=== PATIENT | male | born 1955 | race Caucasian/White ===

== ENCOUNTER 2021-10-09 10:18 | Emergency (ER) | payer OTHER, SELFPAY ==
--- NOTE | ~2021-10-09 | XR_ITS ---
EXAMINATION: XR lumbar spine 2-3V DATE: 10/09/2021 11:05 INDICATION: Mid to low back pain. Fall. TECHNIQUE: 3 views of lumbar spine were obtained. COMPARISON: None. FINDINGS: There is 3 mm retrolisthesis of L1 on L2. There is mild chronic anterior wedging of T11 yane tebral body. There is mildly decreased disc height at L1-L2. There are changes of posterior fusion pr ocedure from L4 to S1 with pedicle screws in L4 and S1. These are disc calcifications at L4-L5 sugges ts interbody fusion. There is multilevel mild facet joint osteoarthritis. There is posterolateral bon e graft from L4 to S1. IMPRESSION: 1. Mild lumbar spondylosis. 2. Posterior fusion procedure from L4 to S1. Reviewed, dictated and finalized at location A.
--- NOTE | ~2021-10-09 | XR_ITS ---
EXAMINATION: XR ribs LT 2V DATE: 10/09/2021 11:05 INDICATION: Posterolateral left rib pain post fall TECHNIQUE: 3 views of the left ribs were obtained. COMPARISON: Chest radiograph dated 12/23/2017 FINDINGS: Old healed fractures of the posterior medial left third-fifth ribs which can be seen on the earlier r adiographs. No new fractures identified. Chronic pleural parenchymal scarring along the left heart elida rder. No new airspace opacities, pulmonary edema, pleural effusion or pneumothorax. Heart size is nor mal. Median sternotomy wires, ostial markers and mediastinal surgical clips consistent with prior cor onary artery bypass grafting. Chronic Hill-Sachs fracture deformity at the superolateral left liz l head with partially visualized bilateral vertical mandy and pedicle screw fixation for lumbosacral po sterior spinal fusion. IMPRESSION: 1. No acute rib fracture or acute cardiopulmonary disease in the left hemithorax. Reviewed, dictated and finalized at location A. IMPRESSION: 1. No acute rib fracture or acute cardiopulmonary disease in the left hemithora x.
--- NOTE | 2021-10-09 10:29 | ED.BACK ---
HPI - Back Pain/Injury General Chief Complaint: Back Pain/Injury Stated Complaint: Back Pain Time Seen by Provider: 10/09/21 10:35 Source: patient and RN notes reviewed Mode of arrival: ambulatory Limitations: no limitations History of Present Illness HPI Narrative: 66-year-old male with a history of 6 vessel CABG in 2014 (on Plavix and Asa 81mg) and hx multiple spine surgeries presented for complaint of left rib and low back pain after falling three times 3 nights ago. He states he got dizzy while walking to the bathroom and during the night, does not recall the events but states he believes he lost his balance and hit the vanity and the tub. States his head feels sore and believes he may have hit his head. Two falls occurred sequentially, stating when he stood up from the first fall he got dizzy and fell again. Later in the night he walked to the bathroom again and fell for the third time against the dresser hitting his left posterior ribs. Denies dizziness, vision changes, nausea, vomiting, chest pain, palpitations, or shortness of breath or loss of bowel/bladder function; denies numbness, tingling or weakness in upper or lower extremities or saddle paresthesia. Hx 2 cervical spine and 2 lumbar spine surgeries. Related Data Home Medications Medication Instructions Recorded Confirmed amitriptyline 100 mg tablet mg 10/09/21 aspirin 81 mg tablet,delayed mg 10/09/21 release baclofen 10 mg tablet mg 10/09/21 buspirone 7.5 mg tablet mg 10/09/21 clopidogrel 75 mg tablet mg 10/09/21 cyanocobalamin (vitamin B-12) mcg 10/09/21 1,000 mcg tablet (Vitamin B-12) duloxetine 60 mg capsule,delayed 60 mg PO BID 10/09/21 10/09/21 release ezetimibe 10 mg tablet mg 10/09/21 gabapentin 100 mg capsule mg 10/09/21 levothyroxine 150 mcg tablet mcg 10/09/21 omeprazole 40 mg capsule,delayed mg 10/09/21 release oxycodone-acetaminophen 10 mg-325 tablet 10/09/21 mg tablet rosuvastatin 40 mg tablet mg 10/09/21 Allergies Allergy/AdvReac Type Severity Reaction Status Date / Time No Known Allergies Allergy Verified 10/09/21 10:20 Review of Systems Review of Systems: CONSTITUTIONAL: Denies body aches, fever, chills, or sweats. EYES: Denies visual changes, redness, or discharge. ENT: Denies rhinorrhea, congestion, sore throat, or otalgia. CARDIOVASCULAR: Denies chest pain, palpitations, or edema. RESPIRATORY: Denies cough or dyspnea. GASTROINTESTINAL: Denies abdominal pain, nausea, vomiting, or diarrhea. GENITOURINARY: Denies dysuria or hematuria. SKIN: Denies rash, itching, or wounds. MUSCULOSKELETAL: Reports back and rib pain NEUROLOGIC: denies headache, denies numbness, tingling, or weakness, dizziness All systems reviewed & are unremarkable except as noted in HPI and below PMFSH Comments At time of signature, I have reviewed and agree with nursing past medical, surgical, social and family history unless otherwise noted. Please see nursing chart for further information. There is no relevant family history pertinent to the presenting complaint Exam Narrative: GENERAL: Well-appearing HEAD: Normocephalic, atraumatic. EYES: PERRLA, EOMI. ENT: Mucous membranes pink and moist. No rhinorrhea. NECK: Normal AROM. Supple. No cervical vertebral point tenderness CHEST: Clear to auscultation. HEART: Regular rate and rhythm. ABDOMEN: Soft, nontender, nondistended, normal active bowel sounds. MUSCULOSKELETAL: Lumbar spine tenderness to palpation approx L3-4 area, Left posterior rib bruising and tenderness with palpation to approx 6-7th ribs EXTREMITIES: Normal range of motion. No edema. SKIN: Warm, dry, no rash. Capillary refill normal. Normal skin turgor. NEURO:No focal deficits. Alert and oriented x3. EOMs intact without nystagmus. No facial droop/asymmetry noted bilaterally. Grimace intact. Intact sensation in face. Hearing intact bilaterally. Shoulder shrug intact. Strength 5/5 bilateral upper extremities.Ambulatory ex
[2021-10-09 10:30] VITALS: BP 114/84; PULSE 75; RESP 16; TEMP 37.1; O2SAT 99
== END 2021-10-09 12:05 | disposition home or self-care (01) ==
PROVIDERS: Emergency Provider Nurse Practitioner Family
DX: R42 Dizziness and giddiness (principal); M54.50 Low back pain, unspecified; S20.212A Contusion of left front wall of thorax, initial encounter; W19.XXXA Unspecified fall, initial encounter; Z95.5 Presence of coronary angioplasty implant and graft; I25.10 Atherosclerotic heart disease of native coronary artery without angina pectoris; E78.00 Pure hypercholesterolemia, unspecified; I10 Essential (primary) hypertension; K21.9 Gastro-esophageal reflux disease without esophagitis; N40.0 Benign prostatic hyperplasia without lower urinary tract symptoms; E03.9 Hypothyroidism, unspecified; G62.9 Polyneuropathy, unspecified; F41.9 Anxiety disorder, unspecified; Z79.01 Long term (current) use of anticoagulants; Z79.82 Long term (current) use of aspirin
CPT/HCPCS: 71100; 72100; 99214; G0463

== ENCOUNTER 2022-04-13 00:38 | Day surgery (SDC) | payer OTHER, SELFPAY ==
[2022-04-06 10:42] VITALS: BMI 32.0
--- NOTE | 2022-04-06 11:06 | PC.NURSE ---
Report to the Outpatient Waiting Room, entrance under the green pavilion located off [facility], at time _1100_ on date _04/13/22_. Planned Procedure Time: _1 PM_. Time changes happen often and if your time is changed the preop area will call you the afternoon before. - You and your visitor will be asked to self-screen and do not enter if you have any COVID symptoms. - Only one visitor is requested with a max of two and NO children visitors are allowed at this time. - The patient visitor may be requested to leave or wait in car when not with patient due to distancing restrictions. - A mask is optional within the hospital at this time. Patients may have clear liquids (water, carbonated beverages, clear teas, apple juice) until 3 hours prior to surgery (1000 AM) with a maximum of 20 ounces. - No food from midnight until time of surgery Take the following medications with a SIP of water the morning of surgery: _BACLOFEN, BUSPIRONE, DULOXETINE, GABAPENTIN, LEVOTHYROXINE, PROPRANOLOL_ DO NOT STOP ANY OF YOUR OTHER PRESCRIPTION MEDICATIONS PRIOR TO SURGERY ?EXCEPT THE FOLLOWING Medications to discontinue - _MELOXICAM PER DR. BECKHAM'S INSTRUCTIONS__ Medications to discontinue per DR. DALAL - _ASPIRIN 7 DAYS PRIOR TO SURGERY, Date PATIENT took last dose 04/06/22_ Medications to discontinue per DR. DALAL -_CLOPIDOGREL 3 DAYS PRIOR TO SURGERY, Date to take last dose 04/09/22_ Please no make-up, nail austrian, hairspray, perfume, deodorant, or body powder the day of surgery. No jewelry (including any body piercings) or valuables the day of surgery, leave them at home. Please take a shower or bath the night before, or the morning of, surgery with an antibacterial soap. Wear comfortable, loose fitting clothing. Children are encouraged to wear pajamas. - Jewelry must be removed prior to entering the operating room. Rings and piercings that are not removed may be cut off. - The hospital will not accept responsibility for valuables. - Please leave all valuables, including medications, at home the day of surgery. If you are going home after surgery, a licensed powder truck driver must drive you home. - NO public transportation without another adult if you receive anesthesia. - We recommend that an adult stay with you for 24 hours following discharge. - We also recommend that you do not drive, make important decision, drink alcoholic beverages, or take any drugs that were not prescribed by your health care provider for at least 24 hours after your discharge time. For Pediatric surgeries, we recommend two adults accompany the child home. Follow any additional instructions given to you from your surgeon. If you or anyone in your household have experienced Covid symptoms in the past week, please notify your surgeon or the nurse liaison at the phone number below for possible testing. Telephone instructions given to _PATIENT__and asked if any additional questions and then verbalized understanding. Patient advised to call surgeon office or pre surgery nurse liaison [phone] if any additional questions.
[2022-04-13] VITALS (9 sets, daily range): BP systolic 98–132; BP diastolic 51–80; PULSE 74–87; RESP 12–18; TEMP 36.6–37.1; O2SAT 92–98; BMI 22.5
[2022-04-13] MEDS: ONDANSETRON INJ 4 MG/2 ML VIAL IV PUSH (10:23)
[2022-04-13] MEDS: LACTATED RINGERS 1,000 ML 30 ML IV CONT (10:23)
[2022-04-13] MEDS: FAMOTIDINE 20 MG/2 ML VIAL IV PUSH (10:26)
--- NOTE | 2022-04-13 10:56 | SUR.PREOP ---
1324 dr barrios returned call and made aware wound to pt left posterior calf quarter size,open,pink. approved to continue for surgery.
--- NOTE | 2022-04-13 11:15 | WPDANESEPPF ---
Anes - Initial Pre Proc Eval Procedure: Operation Date: 04/13/22 12:00 Proposed Procedures p Tailor's Bunionectomy of Fifth Metatarsal Osteotomy Left Foot - Obie Salamanca DPM Date/Time: 04/13/22 11:15 Surgeon: Obie Salamanca DPM Pre Op Diagnosis: Bunionette Left Foot Patient Data Age: 66 Gender: M Height: 1.64 m Weight: 94.6 kg Last Vital Signs Temp 36.6 C 04/13/22 10:01 Pulse 74 04/13/22 10:01 Resp 16 04/13/22 10:01 BP 131/51 L 04/13/22 10:01 Pulse Ox 96 04/13/22 10:01 O2 Del Method Room Air 04/13/22 10:01 Allergies Allergy/AdvReac Type Severity Reaction Status Date / Time povidone-iodine AdvReac Intermediate Rash Verified 04/13/22 10:10 [From Betadine] Home Medications Medication Instructions Recorded Confirmed Type amitriptyline 100 mg tablet 100 mg PO DAILY 10/09/21 04/13/22 History aspirin 81 mg tablet,delayed 81 mg PO DAILY 10/09/21 04/13/22 History release baclofen 10 mg tablet 10 mg PO TID 10/09/21 04/13/22 History buspirone 7.5 mg tablet 7.5 mg PO BID 10/09/21 04/13/22 History clopidogrel 75 mg tablet 75 mg PO DAILY 10/09/21 04/13/22 History cyanocobalamin (vitamin B-12) 1,000 mcg PO DAILY 10/09/21 04/13/22 History 1,000 mcg tablet (Vitamin B-12) duloxetine 60 mg capsule,delayed 60 mg PO BID 10/09/21 04/13/22 History release ezetimibe 10 mg tablet 10 mg PO DAILY 10/09/21 04/13/22 History gabapentin 100 mg capsule 100 mg PO TID 10/09/21 04/13/22 History levothyroxine 150 mcg tablet 150 mcg PO DAILY 10/09/21 04/13/22 History omeprazole 40 mg capsule,delayed 40 mg PO DAILY 10/09/21 04/13/22 History release oxycodone-acetaminophen 10 mg-325 1 tablet PO QID 10/09/21 04/13/22 History mg tablet rosuvastatin 40 mg tablet 40 mg PO DAILY 10/09/21 04/13/22 History meloxicam 15 mg tablet 15 mg DAILY 04/06/22 04/13/22 History propranolol 20 mg tablet 10 mg TID 04/06/22 04/13/22 History tamsulosin 0.4 mg capsule 0.4 mg PO HS 04/06/22 04/13/22 History Patient hx anesthesia problems: none Family hx anesthesia problems: none Results Review: All pre-operative results and documents have been reviewed as part of the pre-operative evaluation. [facility] Past Medical History Medical History (Updated 04/13/22 @ 11:16 by Sammy Reyes MD) CAD (coronary artery disease) Obesity LISETH (obstructive sleep apnea) Prostate CA Surgical History Surgical History History of coronary artery stent placement Social History Social History Smoking status: Never smoker Second hand tobacco smoke exposure: No Alcohol intake: current Alcohol use details: STATES MAYBE 12 BEERS/6 MONTHS Substance use: never Substance use type: does not use Living arrangements: alone Spiritual care concerns: No Anes - Eval Final PreProcedure Day of Procedure 04/13/22 11:15 Patient weight: obese Heart: regular rate and rhythm Lungs: clear to auscultation Airway: Mallampati scale class III Neurological: alert and oriented Last oral intake: >/= 8 hours ASA classification: IV Emergent: no Anesthetic plan: proceed Anesthesia type and monitoring: general LMA and standard monitoring Results Review: All pre-operative results and documents have been reviewed as part of the pre-operative evaluation. Informed Consent: The patient's anesthetic plan and its attendant risks and benefits were discussed with the patient/family/POA. Questions were solicited and answers provided to the satisfaction of the patient/family/POA.
--- NOTE | 2022-04-13 11:41 | P.HPUP_ITS ---
History and Physical Update Update Date/Time: 04/13/22 11:41 History and Physical has been reviewed, including an updated exam of the patient. There are NO changes in the patient's condition. There is a non- infected abrasion on the back of the left calf Risks, benefits, and alternatives have been discussed and questions answered. Patient agrees to proceed with procedure.
--- NOTE | 2022-04-13 11:49 | PM.IMHP ---
H&P: HPI History of Present Illness Date/Time: 04/13/22 11:49 Chief Complaint: Tailor's bunion left foot that has failed conservative therapy Review of Systems Review of Systems: All systems reviewed & are unremarkable except as noted in HPI and below Constitutional: Constitutional: Reports no additional constitutional complaints Musculoskeletal: Comments: POP of 5th metatarsal head left, prominent tailors bunion left Integumentary/Breasts: Skin/Breast: Reports system reviewed and no additional complaints, except as docu [facility] Past Medical History Medical History (Updated 04/13/22 @ 11:53 by Obie Salamanca DPM) CAD (coronary artery disease) Obesity LISETH (obstructive sleep apnea) Prostate CA Surgical History Surgical History History of coronary artery stent placement Social History Social History Smoking status: Never smoker Second hand tobacco smoke exposure: No Alcohol intake: current Alcohol use details: STATES MAYBE 12 BEERS/6 MONTHS Substance use: never Substance use type: does not use Living arrangements: alone Spiritual care concerns: No Meds Home Medications and Allergies Home Medications Medication Instructions Recorded Confirmed Type amitriptyline 100 mg tablet 100 mg PO DAILY 10/09/21 04/13/22 History aspirin 81 mg tablet,delayed 81 mg PO DAILY 10/09/21 04/13/22 History release baclofen 10 mg tablet 10 mg PO TID 10/09/21 04/13/22 History buspirone 7.5 mg tablet 7.5 mg PO BID 10/09/21 04/13/22 History clopidogrel 75 mg tablet 75 mg PO DAILY 10/09/21 04/13/22 History cyanocobalamin (vitamin B-12) 1,000 mcg PO DAILY 10/09/21 04/13/22 History 1,000 mcg tablet (Vitamin B-12) duloxetine 60 mg capsule,delayed 60 mg PO BID 10/09/21 04/13/22 History release ezetimibe 10 mg tablet 10 mg PO DAILY 10/09/21 04/13/22 History gabapentin 100 mg capsule 100 mg PO TID 10/09/21 04/13/22 History levothyroxine 150 mcg tablet 150 mcg PO DAILY 10/09/21 04/13/22 History omeprazole 40 mg capsule,delayed 40 mg PO DAILY 10/09/21 04/13/22 History release oxycodone-acetaminophen 10 mg-325 1 tablet PO QID 10/09/21 04/13/22 History mg tablet rosuvastatin 40 mg tablet 40 mg PO DAILY 10/09/21 04/13/22 History meloxicam 15 mg tablet 15 mg DAILY 04/06/22 04/13/22 History propranolol 20 mg tablet 10 mg TID 04/06/22 04/13/22 History tamsulosin 0.4 mg capsule 0.4 mg PO HS 04/06/22 04/13/22 History Allergies Allergy/AdvReac Type Severity Reaction Status Date / Time povidone-iodine AdvReac Intermediate Rash Verified 04/13/22 10:10 [From Betadine] Vital Signs Vital Signs - 24 hr 04/13/22 10:01 Temperature 36.6 C Pulse Rate 74 Respiratory Rate 16 Blood Pressure 131/51 L Pulse Oximetry 96 Oxygen Delivery Room Air Exam Narrative: Tailors bunion left foot POP left 5th MTH NVSI uninfected superficial abrasion posterior left leg Assessment and Plan Assessment and plan (1) Tailor's bunion of left foot: Code(s): M21.622 - Bunionette of left foot Status: Acute Plan Tailor's bunion left foot - tailor bunionectomy left foot
[2022-04-13] MEDS: ceFAZolin 2 GM/D5W 50 ML 2 GM/50 ML BAG IVPB (12:10)
[2022-04-13] MEDS: BUPivacaine HCL 0.5% 10 ML AMP INFILTRATE (12:38)
--- NOTE | 2022-04-13 12:59 | PM.OP ---
Procedure Note - Brief Procedure Note - Brief Date of procedure: 04/13/22 Pre-op diagnosis: Bunionette Left Foot Tailor's bunion left Post-op diagnosis: Same Procedure performed: Tailor's bunionectomy with staple fixation left Description of procedure: Under monitored sedation patient was brought into the operating room and placed on the operating table in a supine position. Following general anesthesia the foot was then scrubbed, prepped, and draped in the usual aseptic manner. An Esmark bandage was used to exsanguinate the patient?s left foot and the ankle tourniquet was inflated. Attention was then directed to the dorsal aspect of the 5th metatarsophalangeal joint where linear incision was made lateral to the extensor tendon. It was deepened down to the level of the bone using sharp and blunt dissection with care being taken to identify and retract all vital and neurovascular structures. A linear capsulotomy was made and the head of the metatarsal was exposed to the operative field. The lateral eminence was resected. A closing wedge type osteotomy was made. The head was moved medially and dorsally and fixated with 1 sandhya staple. All remaining bone eminences were removed with a bone saw and all rough edges were smoothed. The wound was flushed with copious amounts of sterile normal saline and the deep tissue was repaired using 3-0 vicryl, skin was repaired using 5-0 vicryl. The wound was then injected with 1cc of Decadron and was covered with a dry, sterile compressive dressing consisting of steristrips, antibiotic ointment, Adaptic, 4 x4?s Jerrod and Coban. Ankle tourniquet was deflated; prompt capillary refill response was noted to all digits of the left foot. Patient tolerated the procedure and anesthesia well, was transferred to the recovery room with vital signs stable and neurovascular status intact to all digit of the left foot. Following a period of post-op monitoring the patient will be discharged home with written and oral post-op instructions. Implants: [place] Easy clip staple Surgeon: Obie Salamanca DPM Material Spreader: none Estimated blood loss (mL): 5 Pathology: None sent Complications: No immediate complications Condition: Stable Disposition: PACU
== END 2022-04-13 15:19 | disposition home or self-care (01) ==
PROVIDERS: Visit Provider Podiatrist Foot & Ankle Surgery
PROC: (CPT 28299; principal; 2022-04-13 12:00)
DX: M21.622 Bunionette of left foot (principal); I25.10 Atherosclerotic heart disease of native coronary artery without angina pectoris; G47.33 Obstructive sleep apnea (adult) (pediatric); Z85.46 Personal history of malignant neoplasm of prostate; E66.9 Obesity, unspecified; Z68.35 Body mass index [BMI] 35.0-35.9, adult; Z79.02 Long term (current) use of antithrombotics/antiplatelets; Z79.82 Long term (current) use of aspirin; Z95.5 Presence of coronary angioplasty implant and graft
CPT/HCPCS: 28110; A9270; C1713; J0690; J1100; J2250; J2370; J2405; J2704; J3010; J7120

== ENCOUNTER 2023-12-20 09:55 | Outpatient (CLI) | payer OTHER, SELFPAY ==
[2023-12-20 10:25] LABS: Hematocrit 38.1 % (42.0-52.0); Hemoglobin 13.5 g/dL (14.0-18.0); Mean Corpuscular HGB Conc 35.4 g/dl (32-36); Mean Corpuscular Hemoglobin 34.4 pg (26-34); Mean Corpuscular Volume 97.2 fl (80-100); Platelet Count Result 202 k/mm3 (150-375); Red Blood Count 3.92 M/mm3 (4.6-6.20); White Blood Count 4.4 K/mm3 (4.5-10.0)
[2023-12-20 10:42] LABS: Alanine Aminotransferase 47 U/L (6-50); Albumin Level 3.9 g/dL (3.5-5.1); Alkaline Phosphatase 75 U/L (38-126); Anion Gap 5 mmol/L (4-12); Aspartate Amino Transferase 50 U/L (17-59); Bilirubin,Total 0.5 mg/dL (0.2-1.3); Blood Urea Nitrogen 12 mg/dL (9-20); Calcium 8.9 mg/dL (8.4-10.2); Carbon Dioxide 28 mmol/L (22-30); Chloride 106 mmol/L (98-107); Cholesterol 94 mg/dL (0-200); Estimated Glomerular Filt Rate > 60; Glucose 105 mg/dL (65-110); HDL Direct 41 mg/dL; Potassium 3.9 mmol/L (3.4-5.0); Sodium 139 mmol/L (137-145); Triglycerides 70 mg/dL (<150)
[2023-12-20 10:53] LABS: LDL Cholesterol Direct 37 mg/dL
[2023-12-20 11:45] LABS: Thyroid Stimulating Hormone Reflex 0.255 uIU/mL (0.465-4.68)
[2023-12-20 11:48] LABS: Folic Acid 7.7 ng/mL (2.76->20); Vitamin B12 > 1000.0 pg/mL (239-931)
[2023-12-20 12:39] LABS: Free T4 Free Thyroxine Reflex 1.33 ng/dL (0.78-2.19)
[2023-12-20 14:03] LABS: Total Triiodothyronine (T3) 2.94 NG/ML (0.97-1.69)
[2023-12-22 01:25] LABS: Amphetamines NEGATIVE ng/mL (<500); Barbiturates NEGATIVE ng/mL (<300); Benzodiazepines NEGATIVE ng/mL (<100); Cocaine Metabolite NEGATIVE ng/mL (<150); Marijuana Metabolite NEGATIVE ng/mL (<20); Methadone Metabolite NEGATIVE ng/mL (<100); Opiates NEGATIVE ng/mL (<100); Oxidant NEGATIVE mcg/mL (<200); PCP NEGATIVE ng/mL (<25); pH 6.4 (4.5-9.0)
== END 2023-12-20 09:56 | disposition home or self-care (01) ==
LOC: ANHLAB 09:58
PROVIDERS: PCP Nurse Practitioner Family; Visit Provider Nurse Practitioner Family
DX: E03.9 Hypothyroidism, unspecified (principal); Z79.899 Other long term (current) drug therapy; F41.8 Other specified anxiety disorders; I25.10 Atherosclerotic heart disease of native coronary artery without angina pectoris; K21.9 Gastro-esophageal reflux disease without esophagitis; L40.50 Arthropathic psoriasis, unspecified; L40.9 Psoriasis, unspecified; M19.90 Unspecified osteoarthritis, unspecified site; M54.10 Radiculopathy, site unspecified; Z00.00 Encounter for general adult medical examination without abnormal findings; Z68.30 Body mass index [BMI] 30.0-30.9, adult; Z76.89 Persons encountering health services in other specified circumstances; Z95.5 Presence of coronary angioplasty implant and graft; Z12.5 Encounter for screening for malignant neoplasm of prostate
CPT/HCPCS: 36415; 80053; 80061; 80307; 82607; 82746; 84153; 84439; 84443; 84480; 85027; G0103

== ENCOUNTER 2024-03-31 14:36 | Outpatient (CLI) | payer OTHER, SELFPAY ==
[2024-03-31 15:11] LABS: Hematocrit 40.8 % (42.0-52.0); Hemoglobin 13.7 g/dL (14.0-18.0); Mean Corpuscular HGB Conc 33.6 g/dl (32-36); Mean Corpuscular Hemoglobin 33.1 pg (26-34); Mean Corpuscular Volume 98.6 fl (80-100); Mean Platelet Volume 9.7 fl (7.4-10.4); Platelet Count Result 203 k/mm3 (150-375); Red Blood Count 4.14 M/mm3 (4.6-6.20); Red Cell Distribution Width 13.2 % (11.5-14.5); White Blood Count 6.7 K/mm3 (4.5-10.0)
[2024-03-31 15:35] LABS: Iron 170 ug/dL (49-181)
[2024-03-31 15:44] LABS: Percent Iron Saturation 54 % (20-50)
--- OUTSIDE RECORDS SUMMARY | 2024-04-02 19:06 | XMS_ITS | Encounter Summary ---
Author Organization [facility] Address [address] [place] [address] Care Team Providers Care Child Guidance Counselor Name Role Phone Marquez Torres MD Primary Care Provider [phone] Reason for Visit * Reason Comments Lab Results Encounter Details Date Type Department Care Team (Late st Contact Info) Description 10/08/2023 Telephone [facility] [address] [place] [address] [place] [id number] [facility] [address] [address] Lab Results Social History Tobacco Use Types Packs/Day Years Used Date Smoking Tobacco: Never Assessed Feeling Safe Answer Date Recorded Are you in a relationship wi th someone who hurts you emotionally and/or physically? No 03/28/2023 Sex and Gender Information Value Date Recorded Sex Assigned at Not on file Legal Sex Male 5:21 PM [employer] Gender Identity Not on file Sexual Orientation Not on file documented as of this encounter Miscellaneous Notes * Telephone Encounter - Levi Rivers - 10/10/2023 2:21 PM CDT Called pt to inform him about appointment date with Dr. Torres * Telephone Encounter - Brenda Cole - 10/08/2023 11:12 AM CDT Copied from [facility] #[id number]. Topic: Patient or Caregiver Communication Request >> Oct 08, 2023 11:09 AM Brenda Corral wrote: Patient or Caregiver insisting that a message be sent to Care Team Caller: Mihai Wolff Patient/Caregiver Callback Number: [phone] Call Notes: Pt is calling in regards of being scheduled with . Pt states he had an appointment with yesterday on 10/06, yet he moved locations. Requesting call back with further information. documented in this encounter Plan of Treatment Not on file documented as of this encounter Visit Diagnoses Not on filedocumented in this encounter Care Teams Child Guidance Counselor Relationship Specialty Start Date End Date Marquez Torres MD PCP - General Family Practice 03/28/23 documented as of this encounter
--- OUTSIDE RECORDS SUMMARY | 2024-04-02 19:06 | XMS_ITS | CONTINUITY OF CARE DOCUMENT ---
Author Name faith cuevas Address Unknown Organization [facility] Address [address] [place] [address] Phone [phone] Care Team Providers Care Svp Monetization Name Role Phone Rosey GONZALEZ, Diony Unavailable Diony Currie MD Unavailable [phone] NADIRA ESCAMILLA MD Unavailable [phone] PROBLEMS Condition Status Date Provider Notes Valvular heart disease active Diony Currie MD Diverticulosis, colon active Diony Currie MD CAD;carotid plaquing active Diony Waller codu not afford x 2.5 CABG;OPEN 17 active Diony Currie MD samira wi th radial t and one svg (six distals) hx of Atrial fib paroxysmal active Diony Currie MD right after cab g, on t4 replacement Hypothyroidism active Diony Currie MD Hypercholesterolemia;neg crp and lpa active Diony Currie MD SLEEP APNEA;mild active Diony Currie MD AMI, inferior wall active Diony Currie MD Depression active Diony Currie MD Anemia;IRON AND B12 def active Diony more Pericarditis completed - Diony Currie MD Obesity active Diony Currie MD Syncope;with naz active Diony Currie MD did not want antoerh holter COPD active Diony Currie MD did not wanqt pft Screening active Diony Currie MD neg egfr HTN essential active Diony Currie MD did n otw watn rpm Diastolic dysfunction active Diony Currie MD Iron deficiency completed - Diony Currie MD Mitral insufficiency, mild completed - Diony Currie MD Exposure to SARS-associated coronavirus;neg igg and had vaccine active Diony Currie MD Essential tremor active Diony Currie MD Elevated LFT's completed - Diony Currie MD Psoriasis active Diony Currie MD RA, chronic active Diony Currie MD ENCOUNTERS Date Type Provider Location Encounter Diag nosis - In-person encounter Office Visit Diony Currie MD [facility] Mitral insufficiency, mildElevated LFT'Keisha, chronicPsoriasis - In-person encounter Office Visit Diony Currie MD [facility] COPD - In-person encounter Office Visit Diony Currie MD [facility] CAD;carotid plaquingSyncope;with bradyHTN essentialExposure to SARS-associated coronavirus;neg igg and had vaccineEssential tremor - In-person encounter Office Visit Diony Currie MD [facility] Anemia;IRON AND B12 defObesityDiastolic dysfunctionMitral insufficiency, mildExposure to SARS-associated coronavirus;neg igg and had vaccine - In-person encounter Office Visit Diony Currie MD [facility] Anemia;IRON AND B12 defObesitySyncope;with naz - In-person encounter Office Visit Diony Currie MD [facility] SLEEP APNEA;mildDiastolic dysfunction - In-person encounter Office Visit Diony Currie MD [facility] Screening - In-person encounter Office Visit Diony Currie MD [facility] CABG;OPEN 17Anemia;IRON AND B12 defPericarditisHTN essentialIron deficiency - In-person encounter Office Visit Diony Currie MD [facility] - In-person encounter Office Visit Diony Currie MD [facility] hx of Atrial fib paroxysmalDiastolic dysfunction - In-person encounter Office Visit Diony Currie MD [facility] ObesityCOPDScreeningHTN essential - In-person encounter Office Visit Diony Currie MD [facility] ObesitySyncope;with bradyCOPD - In-person encounter Office Visit Diony Currie MD [facility] CAD;carotid plaquingCABG;OPEN 17hx of Atrial fib paroxysmalHypothyroidismHyper cholesterolemia;neg crp and lpaSLEEP APNEA;mildAMI, inferior wallDepressionAnemia;IRON AND B12 def VITAL SIGNS Date Observation Value Provider Body Mass Index (Ratio) 31.32 kg/m2 Mira Currie MD blood pressure, cuff size regular [facility] blood pressure, diastolic 88 mm[Hg] Ayaan [facility] blood pressure, systolic 141 mm[Hg] Edyta [facility] pulse rate 96 /min [facility] respiratory rate E&M 12 /min [facility] oxygen saturation, oximetry 97 % [facility] weight E&M 206 [lb_av] Familia y height E&M 68 [in_i] Familia y Body Mass Index (Ratio) 30.41 kg/m2 Mira Currie MD weight E&M 200 [lb_av] Diony Waller Body Mass Index (Ratio) 31.62 kg/m2 Mira Currie MD blood pressure, diastolic 74 mm[Hg] Dionne [facility] blood pressure, systolic 125 mm[Hg] Winnie [facility] blood pressure, diastolic 74 mm[Hg] Ca therine [place] blood pressure, systolic 125 mm[Hg] Cat herine [place] pulse rate 66 /min Kaylie Aaron oxygen saturation, oximetry 97 % Kaylie [place] respiratory rate E&M 14 /min Catheri ne Aaron weight E&M 208 [lb_av] Kaylie [place] blood pressure, cuff size regular Ca therine [place] height E&M 68 [in_i] Kaylie [place] Body Mass Index (Ratio) 30.41 kg/m2 Mira Currie MD blood pressure, cuff size large Ke rri Gruenenfelder blood pressure, diastolic 80 mm[Hg] Ke rri Gruenenfelder blood pressure, systolic 140 mm[Hg] Stevenson Acosta oxygen saturation, oximetry 98 % Roseline Acosta respiratory rate E&M 16 /min Roseline drakeelder pulse rate 90 /min Roseline Castañeda ld weight E&M 200 [lb_av] Roseline Garry lder height E&M 68 [in_i] Roseline Castañeda [facility] Body Mass Index (Ratio) 25.85 kg/m2 Mira Currie MD blood pressure, diastolic 80 mm[Hg] Ayaan Parnell RN blood pressure, systolic 132 mm[Hg] Abel Parnell RN oxygen saturation, oximetry 98 % Abel Parnell RN respiratory rate E&M 20 /min Abel rossi RN pulse rate 87 /min Abel Parnell RN weight E&M 170 [lb_av] Abel Parnell RN Body Mass Index (Ratio) 26.15 kg/m2 Mira Currie MD blood pressure, cuff size regular Cr vianca Sushil blood pressure, diastolic 100 mm[Hg] Cr vianca Sushil blood pressure, systolic 130 mm[Hg] Cry vita Sushil oxygen saturation, oximetry 98 % Tonya Ling respiratory rate E&M 17 /min Tonya Ling pulse rate 76 /min Tonya Bledsoe s weight E&M 172 [lb_av] Tonya Bledsoe s height E&M 68 [in_i] Tonya Bledsoe s Body Mass Index (Ratio) 29.43 kg/m2 Mira Currie MD blood pressure, cuff size large Ke luís Acosta oxygen saturation, oximetry 96 % Roseline Acosta blood pressure, diastolic 68 mm[Hg] Ke rri Karla blood pressure, systolic 108 mm[Hg] Stevenson ri Karla respiratory rate E&M 18 /min Roseline larsen pulse rate 72 /min Roseline Castañeda [facility] weight E&M 193.6 [lb_av] Roseline murray height E&M 68 [in_i] Roseline Castañeda [facility] Body Mass Index (Ratio) 30.13 kg/m2 Mira Currie MD blood pressure, diastolic 78 mm[Hg] Noreen Torres blood pressure, systolic 127 mm[Hg] Nasreen Torres oxygen saturation, oximetry 94 % Ady Torres respiratory rate E&M 18 /min Marco A Torres pulse rate 84 /min Ady walker weight E&M 198.2 [lb_av] Ady cueto height E&M 68 [in_i] Ady walker Body Mass Index (Ratio) 30.13 kg/m2 Je Mckeon [employer] TECH[employer]ICIAN blood pressure, cuff size regular Sh kingsley Mckeon TRAFF[employer] SIGNAL TECHNICIAN blood pressure, diastolic 68 mm[Hg] Sh kingsley Mckeon TRAFF[employer] SIGNAL TECHNICIAN blood pressure, systolic 142 mm[Hg] She april Mckeon TRAFF[employer] SIGNAL TECHNICIAN weight E&M 198.2 [lb_av] Kelsie Mckeon TRAFFIC SIGNAL TECHNICIAN Body Mass Index (Ratio) 30.10 kg/m2 [facility] ta Demecs RN blood pressure, cuff size regular arlene Demecs RN blood pressure, diastolic 80 mm[Hg] arlene Demecs RN blood pressure, systolic 114 mm[Hg] [facility] sta Demecs RN oxygen saturation, oximetry 98 % Anderson Demecs RN respiratory rate E&M 16 /min Anderson Demecs RN pulse rate 73 /min Anderson Demecs R N weight E&M 198 [lb_av] Milena Demecs R N Body Mass Index (Ratio) 30.16 kg/m2 [facility] ta Demecs RN blood pressure, cuff size regular arlene Demecs RN blood pressure, diastolic 80 mm[Hg] arlene Demecs RN blood pressure, systolic 110 mm[Hg] [facility] sta Demecs RN oxygen saturation, oximetry 98 % Anderson Demecs RN respiratory rate E&M 18 /min Anderson Demecs RN pulse rate 96 /min Anderson Demecs R N weight E&M 198.4 [lb_av] Milena Demecs RN Body Mass Index (Ratio) 30.41 kg/m2 Mira Currie MD blood pressure, cuff size regular Ke rri Karla blood pressure, diastolic 93 mm[Hg] Ke rri Shinuenelizbeth blood pressure, systolic 141 mm[Hg] Ker ri Karla oxygen saturation, oximetry 98 % Roseline Toddkristiannate respiratory rate E&M 18 /min Roseline Tom xanderyoliskristiannate pulse rate 79 /min Roseline Castañeda [facility] weight E&M 200 [lb_av] Roseline Castañeda er height E&M 68 [in_i] Roseline Castañeda [facility] Body Mass Index (Ratio) 29.86 kg/m2 Mira Currie MD blood pressure, diastolic 92 mm[Hg] Noreen Torres blood pressure, systolic 141 mm[Hg] Nasreen Torres oxygen saturation, oximetry 98 % Ady Torres respiratory rate E&M 18 /min Marco A Torres pulse rate 88 /min Ady walker weight E&M 196.4 [lb_av] Ady cueto height E&M 68 [in_i] Ady Herb on blood pressure, diastolic, standing 74 mm [Hg] Chichi David blood pressure, systolic, standing 105 mm [Hg] Chichi David blood pressure, diastolic 83 mm[Hg] Nj tim Hernandez blood pressure, systolic 112 mm[Hg] Kymberly jennifer David respiratory rate E&M 16 /min Chichi David pulse rate 74 /min Chichi David oxygen saturation, oximetry 98 % Chichi David Body Mass Index (Ratio) 30.25 kg/m2 Bhavna kevin Hernandez weight E&M 199.0 [lb_av] Chichi David blood pressure, diastolic 73 mm[Hg] Noreen Torres blood pressure, systolic 113 mm[Hg] Nasreen Torres pulse rate 70 /min Ady walker oxygen saturation, oximetry 98 % Ady Torres respiratory rate E&M 16 /min Marco A Torres Body Mass Index (Ratio) 29.25 kg/m2 Nisreen Torres weight E&M 192.4 [lb_av] Ady cueto height E&M 68 [in_i] Ady Estevez nson ALLERGIES Allergy Name Onset Date Reaction Criticality Status PROPRANOLOL HCL braayd and syncoe Low Criticali ty active RESULTS Date Observation Value Provider Reference Range Interpretation Location alanine aminotransferase (SGPT), serum 26 1/L [facility] 9-46 Normal aspartate aminotransferase (SGOT), serum 24 1/L [facility] 10-35 Normal alkaline phosphatase, serum 92 1/L [facility] 35-144 Normal bilirubin, serum, total 0.4 mg/dL [facility] 0.2-1.2 Normal albumin/globulin ratio, serum 1.6 (calc) [facility] 1.0-2.5 Normal globulins, serum, total 2.7 G/DL (CALC) [facility] 1.9-3.7 Normal albumin, serum 4.2 g/dL [facility] 3.6-5.1 Normal protein, total, serum 6.9 g/dL [facility] 6.1-8.1 Normal calcium, serum 8.9 mg/dL [facility] 8.6-10.3 Normal carbon dioxide, venous blood 25 mmol/L [facility] 20-32 Normal chloride, serum 105 mmol/L [facility] 98-110 Normal potassium, serum 3.8 mmol/L [facility] 3.5-5.3 Normal sodium, serum 139 mmol/L [facility] 135-146 Normal urea nitrogen/creatinine ratio, serum SEE NOTE: (calc) [facility] 6-22 creatinine, serum 1.35 mg/dL [facility] 0.70-1.35 Normal urea nitrogen, blood 7 mg/dL [facility] 7-25 Normal blood glucose, random 105 mg/dL [facility] 65-99 High cholesterol, non-HDL, total 45 MG/DL (CALC) [facility] <130 Normal cholesterol/HDL ratio, serum, percent 2.3 (calc) [facility] <5.0 Normal LDL cholesterol, serum 24 MG/DL (CALC) [facility] Normal triglyceride, serum, fasting 120 mg/dL [facility] <150 Normal HDL cholesterol, serum 36 mg/dL [facility] > OR = 40 Low cholesterol, serum 81 mg/dL [facility] <200 Normal C-reactive protein, serum 0.11 mg/dL [facility] Units converted. See lab report for original value. Normal NT-pro BNP 103 [facility] Normal alanine aminotransferase (SGPT), serum 48 1/L [facility] 9-46 High aspartate aminotransferase (SGOT), serum 32 1/L [facility] 10-35 Normal alkaline phosphatase, serum 92 1/L [facility] 35-144 Normal bilirubin, serum, total 0.6 mg/dL [facility] 0.2-1.2 Normal albumin/globulin ratio, serum 1.3 (calc) [facility] 1.0-2.5 Normal globulins, serum, total 3.0 G/DL (CALC) [facility] 1.9-3.7 Normal albumin, serum 4.0 g/dL [facility] 3.6-5.1 Normal protein, total, serum 7.0 g/dL [facility] 6.1-8.1 Normal calcium, serum 9.2 mg/dL [facility] 8.6-10.3 Normal carbon dioxide, venous blood 26 mmol/L [facility] 20-32 Normal chloride, serum 106 mmol/L [facility] 98-110 Normal potassium, serum 4.0 mmol/L [facility] 3.5-5.3 Normal sodium, serum 139 mmol/L [facility] 135-146 Normal urea nitrogen/creatinine ratio, serum NOT APPLICABLE (calc) [facility] 6-22 Estimated Glomerular Filtration Rate (calc) 70 mL/min/{1.73_ m2} [facility] > OR = 60 Normal creatinine, serum 1.23 mg/dL [facility] 0.70-1.25 Normal urea nitrogen, blood 9 mg/dL [facility] 7-25 Normal blood glucose, random 115 mg/dL [facility] 65-99 High microalbumin/creati nine ratio, urine NOTE mcg/mg creat [facility] <30 Normal microalbumin/total urine volume <0.2 mg/dL [facility] See Note: Normal creatinine, random, urine 68 mg/dL [facility] 20-320 Normal lipoprotein, beta, serum, point, quantitative, calculated 34 mg/dL [facility] 0-99 HDL cholesterol, serum 36 mg/dL [facility] >39 Low triglyceride, serum, random 139 mg/dL [facility] 0-149 cholesterol, serum 94 mg/dL [facility] 100-199 Low folate, serum 13.7 ng/mL [facility] >3.0 lipoprotein, beta, serum, point, quantitative, calculated 146 mg/dL [facility] 0-99 High very low density lipoproteins 30 mg/dL [facility] 5-40 HDL cholesterol, serum 37 mg/dL [facility] >39 Low triglyceride, serum, random 151 mg/dL [facility] 0-149 High cholesterol, serum 213 mg/dL [facility] 100-199 High pro brain natriuretic peptide 150 pg/mL [facility] 0-210 ferritin, serum 530 ng/mL [facility] 30-400 High iron saturation percent, serum 29 % [facility] 15-55 iron, serum 69 ug/dL [facility] 38-169 iron binding capacity, unsaturated 166 ug/dL [facility] 289-871 1022/06 /08 iron binding capacity, total 235 ug/dL [facility] 250-450 Low lipoprotein, beta, serum, point, quantitative, calculated 84 mg/dL [facility] 0-99 very low density lipoproteins 28 mg/dL [facility] 5-40 HDL cholesterol, serum 31 mg/dL [facility] >39 Low triglyceride, serum, random 140 mg/dL [facility] 0-149 cholesterol, serum 143 mg/dL [facility] 165-392 8700/06 /08 basophil count, absolute 0.1 x10E3/uL [facility] 0.0-0.2 Eosinophil Absolute Count 0.3 X10E3/UL [facility] 0.0-0.4 monocyte count, blood, automated 0.6 X10E3/UL [facility] 0.1-0.9 lymphocyte count, blood, automated 2.0 X10E3/UL [facility] 0.7-3.1 Absolute Neutrophils 3.4 X10E3/UL [facility] 1.4-7.0 basophils as percent of blood leukocytes 1 % [facility] Not Estab. eosinophils as percent of blood leukocytes 5 % [facility] Not Estab. monocytes as percent of blood leukocytes 9 % [facility] Not Estab. lymphocytes as percent of blood leukocytes 32 % [facility] Not Estab. neutrophils as percent of blood leukocytes 53 % [facility] Not Estab. platelet count 195 X10E3/UL [facility] 074-148 1054/06 /08 red blood cell distribution width 14.1 % [facility] 12.3-15.4 mean corpuscular hemoglobin concentration, RBC 33.4 G/DL [facility] 31.5-35.7 mean corpuscular hemoglobin, RBC 30.2 pg [facility] 26.6-33.0 mean corpuscular volume, RBC 90 fL [facility] 79-97 hematocrit, blood 43.4 % [facility] 37.5-51.0 hemoglobin, blood 14.5 g/dL [facility] 13.0-17.7 erythrocyte (RBC) count 4.80 X10E6/UL [facility] 4.14-5.80 leukocyte count, blood 6.4 X10E3/UL [facility] 3.4-10.8 alanine aminotransferase (SGPT), serum 22 1/L [facility] 0-44 aspartate aminotransferase (SGOT), serum 18 1/L [facility] 0-40 alkaline phosphatase, serum 80 1/L [facility] 39-117 bilirubin, serum, total 0.3 mg/dL [facility] 0.0-1.2 albumin/globulin ratio, serum 1.6 [facility] 1.2-2.2 globulin, serum 2.6 [facility] 1.5-4.5 albumin, serum 4.2 g/dL [facility] 3.6-4.8 protein, total, serum 6.8 g/dL [facility] 6.0-8.5 calcium, serum 9.0 mg/dL [facility] 8.6-10.2 carbon dioxide, venous blood 24 mmol/L [facility] 18-29 chloride, serum 106 mmol/L [facility] 96-106 potassium, serum 3.7 mmol/L [facility] 3.5-5.2 sodium, serum 142 mmol/L [facility] 447-527 7531/06 /08 urea nitrogen/creatinine ratio, serum 9 [facility] 10-24 Low eGFR if 70 mL/min/{1.73_ m2} [facility] >59 eGFR if not 61 mL/min/{1.73_ m2} [facility] >59 creatinine, serum 1.26 mg/dL [facility] 0.76-1.27 urea nitrogen, blood 11 mg/dL [facility] 8-27 blood glucose, random 90 mg[facility] 65[facility]99 ferritin, serum 846.2 ng/mL [facility] 30.0 - 400.0 High red blood cell distribution width, size density 50.4 fL [facility] - immature granulocytes, percentage of total cells, blood 0.3 % [facility] - nucleated red blood cells as percent of blood leukocytes 0.3 % [facility] - red blood cell (erythrocyte) count, per high power field 0.0 10*3/UL [facility] - eosinophils as percent of blood leukocytes 4.4 % [facility] - neutrophils as percent of blood leukocytes 62.9 % [facility] - Absolute Neutrophils 3.9 CELLS/UL [facility] 1.5 - 7.8 basophils as percent of blood leukocytes 1.6 % [facility] - Absolute Basophils 0.1 CELLS/UL [facility] 0.0 - 0.2 monocytes as percent of blood leukocytes 7.7 % [facility] - [facility] Monocytes 0.5 CELLS/UL [facility] 0.2 - 1.0 lymphocytes as percent of blood leukocytes 23.1 % [facility] Lymphocytes 1.4 CELLS/UL [facility] 0.9 - 3.9 mean platelet volume 9.6 (?) [facility] - platelet count 253.0 THOUSAND/UL [facility] 100.0 - 400.0 mean corpuscular hemoglobin concentration, RBC 33.4 G/DL [facility] 31.0 - 38.0 mean corpuscular hemoglobin, RBC 31.1 pg [facility] 25.0 - 35.0 mean corpuscular volume, [facility] 93.1 [facility] - 100.0 hematocrit, blood 51.5 % [facility] 35.0 - 55.0 hemoglobin, blood 17.2 g/dL [facility] 11.5 - 16.5 High erythrocyte count, whole blood 5.5 MILLION/UL [facility] 3.5 - 5.5 iron, serum 166.0 ug/dL [facility] 31.0 - 144.0 High iron saturation percent, serum 57.3 % [facility] 20.0 - 50.0 High iron binding capacity, total 289.8 ug/dL [facility] 250.0 - 450.0 free thyroxine index 8.3 ??g/dL [facility] 4.4 - 11.4 triiodothyronine uptake 1.0 TBI [facility] 0.8 - 1.3 thyroxine, serum, total 8.3 ??G/DL [facility] 4.5 - 11.7 thyroid stimulating hormone, serum 3.870 ??IU/ML [facility] 0.270 - 4.200 pro brain natriuretic peptide 83.6 pg/mL [facility] 0.0 - 125.0 very low density lipoproteins 49.6 mg/dL [facility] 5.0 - 40.0 High LDL/HDL (low-density lipoprotein/high-de nsity lipoprotein) ratio 2.7 RATIO [facility] - lipoprotein, beta, serum, point, quantitative, calculated 104.4 (?) [facility] 0.0 - 100.0 High HDL cholesterol, serum 39.0 mg/dL [facility] 35.0 - 55.0 cholesterol, serum 193.0 mg/dL [facility] 0.0 - 200.0 triglyceride, serum, fasting 248.0 mg/dL [facility] 0.0 - 150.0 High ferritin, serum 33.6 ng/mL [facility] 30.0 - 400.0 iron, serum 72.0 ug/dL [facility] 31.0 - 144.0 iron saturation percent, serum 18.1 % [facility] 20.0 - 50.0 Low iron binding capacity, total 397.6 ug/dL [facility] 250.0 - 450.0 hemoglobin A1C, blood, as % of total hemoglobin 5.4 % [facility] 4.0 - 6.0 free thyroxine index 9.5 ??g/dL [facility] 4.4 - 11.4 triiodothyronine uptake 1.0 TBI [facility] 0.8 - 1.3 thyroxine, serum, total 9.5 ??G/DL [facility] 4.5 - 11.7 thyroid stimulating hormone, serum 2.950 ?IU/ML [facility] 0.270 - 4.200 very low density lipoproteins 26.0 mg/dL [facility] 5.0 - 40.0 LDL/HDL (low-density lipoprotein/high-de nsity lipoprotein) ratio 2.1 RATIO [facility] - lipoprotein, beta, serum, point, quantitative, calculated 73.0 (?) [facility] 0.0 - 100.0 HDL cholesterol, serum 34.0 mg/dL [facility] 35.0 - 55.0 Low cholesterol, serum 133.0 mg/dL [facility] 0.0 - 200.0 triglyceride, serum, fasting 130.0 mg/dL [facility] 0.0 - 150.0 vitamin b12, serum 1626.0 pg/mL [facility] 211.0 - 946.0 High pro brain natriuretic peptide 56.9 pg/mL [facility] 0.0 - 125.0 anion gap, serum 11.2 [facility] - albumin/globulin ratio, serum 2.8 g/dL [facility] 1.1 - 2.5 High globulin, serum 3.3 [facility] 2.3 - 3.8 urea nitrogen/creatinine ratio, serum 9.2 [facility] - Estimated Glomerular Filtration Rate (calc) 59.8 (?) [facility] 59.0 - chloride, serum 100.8 mmol/L [facility] 98.0 - 107.0 potassium, serum 4.1 mmol/L [facility] 3.5 - 5.1 sodium, serum 141.0 mmol/L [facility] 136.0 - 145.0 creatinine, serum 1.3 mg/dL [facility] 0.7 - 1.2 High carbon dioxide, venous blood 29.0 mmol/L [facility] 23.0 - 31.0 albumin, serum 4.8 g/dL [facility] 3.5 - 5.2 calcium, serum 9.7 mg/dL [facility] 8.6 - 10.2 aspartate aminotransferase (SGOT), serum 27.0 1/L [facility] 0.0 - 40.0 alkaline phosphatase, serum 108.0 1/L [facility] 40.0 - 130.0 alanine aminotransferase (SGPT), serum 27.0 1/L [facility] 0.0 - 41.0 protein, total, serum 8.1 g/dL [facility] 6.6 - 8.7 bilirubin, serum, total 1.0 mg/dL [facility] 0.0 - 1.2 urea nitrogen, blood 12.0 mg/dL [facility] 8.0 - 23.0 blood glucose, random 81.0 mg/dL [facility] 74.0 - 99.0 red blood cell distribution width, size density 49.6 fL [facility] - immature granulocytes, percentage of total cells, blood 0.4 % [facility] - nucleated red blood cells as percent of blood leukocytes 0.0 % [facility] - red blood cell (erythrocyte) count, per high power field 0.0 10*3/UL [facility] - eosinophils as percent of blood leukocytes 4.7 % [facility] - neutrophils as percent of blood leukocytes 62.3 % [facility] - Absolute Neutrophils 4.7 CELLS/UL [facility] 1.5 - 7.8 basophils as percent of blood leukocytes 1.6 % [facility] - Absolute Basophils 0.1 CELLS/UL [facility] 0.0 - 0.2 monocytes as percent of blood leukocytes 10.0 % [facility] - Absolute Monocytes 0.8 CELLS/UL [facility] 0.2 - 1.0 lymphocytes as percent of blood leukocytes 21.0 % [facility] - Absolute Lymphocytes 1.6 CELLS/UL [facility] 0.9 - 3.9 mean platelet volume 9.6 (?) [facility] - platelet count 354.0 THOUSAND/UL [facility] 100.0 - 400.0 mean corpuscular hemoglobin concentration, RBC 29.5 G/DL [facility] 31.0 - 38.0 Low mean corpuscular hemoglobin, RBC 25.7 pg [facility] 25.0 - 35.0 mean corpuscular volume, RBC 86.9 fL [facility] 75.0 - 100.0 hematocrit, blood 39.3 % [facility] 35.0 - 55.0 hemoglobin, blood 11.6 g/dL [facility] 11.5 - 16.5 erythrocyte count, whole blood 4.5 MILLION/UL [facility] 3.5 - 5.5 anion gap, serum 13.4 [facility] - albumin/globulin ratio, serum 2.3 g/dL [facility] 1.1 - 2.5 globulin, serum 3.9 [facility] 2.3 - 3.8 High urea nitrogen/creatinine ratio, serum 17.5 [facility] - Estimated Glomerular Filtration Rate (calc) 65.9 (?) [facility] 59.0 - chloride, serum 103.6 mmol/L [facility] 98.0 - 107.0 potassium, serum 4.8 mmol/L [facility] 3.5 - 5.1 sodium, serum 142.0 mmol/L [facility] 136.0 - 145.0 creatine, serum 1.2 mg/dL [facility] 0.7 - 1.2 carbon dioxide, venous blood 25.0 mmol/L [facility] 22.0 - 29.0 albumin, serum 4.4 g/dL [facility] 3.5 - 5.2 calcium, serum 9.9 mg/dL [facility] 8.6 - 10.2 aspartate aminotransferase (SGOT), serum 16.0 1/L [facility] 0.0 - 40.0 alkaline phosphatase, serum 120.0 1/L [facility] 40.0 - 130.0 alanine aminotransferase (SGPT), serum 17.0 1/L [facility] 0.0 - 41.0 protein, total, serum 8.3 g/dL [facility] 6.6 - 8.7 urea nitrogen, blood 21.0 mg/dL [facility] 6.0 - 20.0 High Glucose Urine 78.0 mg/dL [facility] 74.0 - 99.0 bilirubin, serum, total 0.4 mg/dL [facility] 0.0 - 1.2 iron binding capacity, unsaturated 107.0 ??G/DL [facility] 112.0 - 347.0 Low ferritin, serum 90.2 ng/mL [facility] 30.0 - 400.0 iron binding capacity, total 373.0 (?) [facility] - iron, serum 266.0 ug/dL [facility] 31.0 - 144.0 High HISTORY OF MEDICATION USE Medication Status Instructions Dates Provider Indications Com ments folic acid 400 mcg tablet active Diony Currie MD methotrexate sodium 2.5 mg tablet active Diony Currie MD hydroxychloroquine 200 mg tablet active Diony Currie MD ezetimibe 10 mg tablet active TAKE 1 TABLET BY MOUTH EVERY DAY Tracey Palomo gabapentin 100 mg capsule active TAKE ONE CAPULE BY MOUTH THREE TIMES DAILY Serena Brewster ezetimibe 10 mg tablet completed Take 1 tablet by mouth once a day TAKE 1 TABLET BY MOUTH EVERY DAY 09/06 - Serena Brewster propranolol 20 mg tablet completed - Diony Currie MD ezetimibe 10 mg tablet completed TAKE 1 TABLET BY MOUTH EVERY DAY 05/18 - 09/06 Serena Brewster aspirin 81 mg tablet,delayed release (DR/EC) active TAKE 1 TABLET BY MOUTH EVERY DAY 05/15 [facility] rosuvastatin 40 mg tablet active TAKE 1 TABLET BY MOUTH EVERY DAY 05/15 [facility] ezetimibe 10 mg tablet completed Take 1 tablet by mouth once a day 04/21 - 05/18 Roseline Acosta cyanocobalamin (vitamin B-12) 1,000 mcg tablet active TAKE 1 TABLET BY MOUTH EVERY DAY 03/22 [facility] clopidogrel 75 mg tablet active TAKE 1 TABLET BY MOUTH EVERY DAY 04/17 Tracey Palomo Plavix 75 mg tablet completed ONE TAB. DAILY 05/01 - 04/17 Diony Currie MD XARELTO 2.5 MG ORAL TABLET completed one tab by mouth twice daily 04/27 - 05/01 Diony Currie MD Zetia 10 mg tablet completed ONE TAB. DAILY - 04/21 Diony Currie MD Crestor 40 mg tablet completed 1 tablet by mouth once a day - 05/15 Diony Currie MD REPATHA SURECLICK 140 MG/ML SUBCUTANEOUS SOLUTION AUTO-INJECTOR completed every two weeks instead of zetia - Diony Currie MD FLUCONAZOLE 200 MG ORAL TABLET completed dailoy - 10/17 Roseline Acosta oxycodone 10 mg tablet active tablet by mouth four times a day Abel Parnell RN ZETIA 10 MG ORAL TABLET completed ONE TAB. DAILY with his lipitor 11/06 - Diony Currie MD LOSARTAN POTASSIUM 25 MG ORAL TABLET completed Take one tablet daily 11/05 - Abel Parnell RN aspirin 81 mg tablet,delayed release (DR/EC) completed Take 1 tablet by mouth once a day 08/21 - 05/15 [place] baclofen 10 mg tablet active Take 1 tablet by mouth once a day Fabrizio Hernandez duloxetine 60 mg capsule,delayed release(DR/EC) active Take 1 capsule by mouth twice a day Fabrizio Hernandez PROPRANOLOL HCL 10 MG ORAL TABLET completed take one tablet by mouth three times daily - Diony Currie MD gabapentin 100 mg capsule completed Take 1 tablet by mouth three times a day - Roseline Acosta IBUPROFEN 800 MG ORAL TABLET completed Take 1 tablet orally three times daily. 12/02 - 10/17 Roseline Acosta Prescribed by PCP ZETIA 10 MG ORAL TABLET completed ONE TAB. DAILY, take with liptor 08/16 - 10/17 Tonya Ling TOPAMAX 100 MG ORAL TABLET completed daily 08/14 - 10/17 Tonya Ling PLAVIX 75 MG ORAL TABLET completed ONE TAB. DAILY 08/14 - 04/27 Diony Currie MD ADIPEX-P 37.5 MG ORAL CAPSULE completed ONE A DAY 04/03 - 08/14 Roseline Acosta TOPAMAX 100 MG ORAL TABLET completed ONE A DAY 04/03 - 08/14 Diony Currie MD omeprazole 40 mg capsule,delayed release(DR/EC) active capsule by mouth once a day 11/05 Diony Currie MD Flomax 0.4 mg capsule active once a day 04/03 Diony Currie MD TESTOSTERONE 200 MG IMPLANT PELLET completed every 2 weeks - Abel Parnell RN buspirone 7.5 mg tablet active 1 tablet by mouth twice a day Ady Torres OMEPRAZOLE 40 MG ORAL CAPSULE DELAYED RELEASE completed 1 tab once daily - 08/14 Roseline Acosta ZETIA 10 MG ORAL TABLET completed ONE TAB. DAILY 06/27 - 10/17 Ady Torres let him know he needs extral chol med DIOVAN 160 MG ORAL TABLET completed ONE TAB. DAILY - 08/14 Diony Currie MD BUPROPION HCL ER (SR) 150 MG ORAL TABLET EXTENDED RELEASE 12 HOUR completed once daily - 10/17 Tonya Ling SERTRALINE HCL 100 MG ORAL TABLET completed once daily - 10/17 Tonya Ling amitriptyline 100 mg tablet active 1 once a day 08/14 Roseline Acosta OXYCODONE-ACETAMINO PHEN 5-325 MG ORAL TABLET completed 1-2 tabs every 4 hours as needed - Abel Parnell RN METOPROLOL TARTRATE 25 MG ORAL TABLET completed 1/2 in am 04/28 - 08/14 Diony Currie MD MAGNESIUM OXIDE 400 MG ORAL TABLET completed twice daily - 04/28 Diony Currie MD COLACE 100 MG ORAL CAPSULE completed once daily - 04/28 Diony Currie MD cyanocobalamin (vitamin B-12) 1,000 mcg tablet completed once daily - 03/22 Ady Torres ASPIRIN ADULT LOW DOSE 81 MG ORAL TABLET DELAYED RELEASE completed One Tab By Mouth Daily 04/25 - 12/02 Lucita Emerson AMIODARONE HCL 400 MG ORAL TABLET completed ONE TAB. DAILY - 04/28 Diony Currie MD DEPO-TESTOSTERONE 100 MG/ML INTRAMUSCULAR SOLUTION completed 1 injection every 2 weeks - 10/17 Ady Torres LIPITOR 20 MG ORAL TABLET completed ONE TAB. DAILY 11/05 - Diony Currie MD Synthroid 150 mcg tablet active 1 tablet by mouth once a day 04/03 Diony Currie MD CYMBALTA 60 MG ORAL CAPSULE DELAYED RELEASE PARTICLES completed once daily - 10/17 Ady Torres CYCLOBENZAPRINE HCL 10 MG ORAL TABLET completed every 8 hours as needed - 10/17 Ady Torres SOCIAL HISTORY Date Observation Value Provider social history E&M Smoking Histo ry: P atient has never smoked. Diony Currie MD social history reviewed E&M revi ewed - no changes required Diony Currie MD social history E&M S moking History: P atient has never smoked. Diony Currie MD social history reviewed E&M revi ewed - no changes required Diony Currie MD smoking status Never smoker Kaylie Demarco s social history E&M S moking History: P atient has never smoked. Diony Currie MD social history reviewed E&M revi ewed - no changes required Diony Currie MD smoking status Never smoker Roseline Mixkaur hough social history reviewed E&M revi ewed - no changes required Diony Currie MD social history E&M S moking History: P atedie has never smoked. Diony Currie MD social history reviewed E&M revi ewed - no changes required Diony Currie MD smoking status Never smoker Tonya Baron [facility] social history E&M S moking History: P atedie has never smoked. Diony Currie MD social history reviewed E&M revi ewed - no changes required Diony Currie MD smoking status Never smoker Roseline Scottramsey hough social history E&M S moking History: P atedie has never smoked. Diony Currie MD social history reviewed E&M revi ewed - no changes required Diony Currie MD smoking status Never smoker Adyramsey Georges smoking status Never smoker Kelsie Stapletonlissa alcaraz NP social history E&M S moking History: P atient has never smoked. Diony Currie MD social history reviewed E&M revi ewed - no changes required Diony Currie MD smoking status Never smoker Roseline Scottramsey hough social history E&M S moking History: P atient has never smoked. Diony Currie MD social history reviewed E&M revi ewed - no changes required Diony Currie MD smoking status Never smoker Ady Georges social history reviewed E&M revi ewed - no changes required Diony Currie MD social history reviewed E&M revi ewed - no changes required Diony Currie MD smoking status Never smoker Ady Georges FUNCTIONAL STATUS Date Observation Value Provider HRA, CV Assess/Plan, Angina (inactive) Management Plan continue current therapy Diony Currie MD HRA, CV Assess/Plan, Angina (inactive) Management Plan continue current therapy Diony Currie MD HRA, CV Assess/Plan, Angina (inactive) Management Plan continue current therapy Diony Currie MD HRA, CV Assess/Plan, Angina (inactive) Management Plan continue current therapy Diony Currie MD HRA, CV Assess/Plan, Angina (inactive) Management Plan continue current therapy Diony Currie MD HRA, CV Assess/Plan, Angina (inactive) Management Plan continue current therapy Diony Currie MD HRA, CV Assess/Plan, Angina (inactive) Management Plan continue current therapy Diony Currie MD HRA, CV Assess/Plan, Angina (inactive) Management Plan continue current therapy Diony Currie MD FAMILY HISTORY Family Member Condition First Degree Blood Relative No Known Fam kyle History INSURANCE PROVIDERS Payer name Policy type / Coverage type [place] [employer] [facility] [employer] Other [id number] ADVANCE DIRECTIVES Name Date DISCUSSED - NO DECISION MADE TREATMENT PLAN Date Name Performer [id number],S, p ro 103 e f 55 Diony Currie MD [id number],B, H is updated medication list for this problem includes: Aspirin 81 Mg Tablet,delayed Release (dr/ec) (Aspirin) ..... Take 1 tablet by mouth every day BP today: 141/88 P rior BP: 125/74 (08/24/2021) Prior 10 Yr Risk Heart Disease: N/A (08/22/2016) Labs Reviewed: C reat: 1.23 (08/31/2021) C hol: 94 (02/26/2020) HDL: 36 (02/26/2020) Diony Currie MD [id number],S, Diony Currie MD [id number],C, Diony Currie MD [id number],S,corecte, up t o date on colon Diony Currie MD [id number],S, Diony Errol france MD [id number],S, A LL OPEN 17, IF HAS MORE SX CAN DO ECP Diony Currie MD [id number],S, m ild mr and tr and pr Diony Currie MD [id number],S, p ro 103 e f 55 Diony Currie MD [id number],S, Diony france MD [id number],S, Diony france MD [id number],B, Diony france MD [id number],B, H is updated medication list for this problem includes: Aspirin 81 Mg Tablet,delayed Release (dr/ec) (Aspirin) ..... Take 1 tablet by mouth every day BP today: 141/88 P rior BP: 125/74 (08/24/2021) Prior 10 Yr Risk Heart Disease: N/A (08/22/2016) Labs Reviewed: C reat: 1.23 (08/31/2021) C hol: 94 (02/26/2020) HDL: 36 (02/26/2020) Diony Currie MD [id number],SDiony MD [id number],S,n eg vd N EG UACR A1C AND VIT D Diony Currie MD [id number],BDiony MD [id number],S, A LL OPEN 17, IF HAS MORE SX CAN DO ECP Diony Currie MD [id number],S, A LL OPEN 17, IF HAS MORE SX CAN DO ECP Diony Currie MD [id number],B, Diony Serot a [id number],S, Diony Serot a [id number],S, Diony Serot a [id number],S, Diony Serot a [id number],S, Diony Serot a [id number],S, Diony Serot a [id number],S, Diony Serot a [id number],S, N EG UACR A1C AND VIT D Diony Currie MD [id number],S,p ro 103 e f 55 Diony Currie MD [id number],S, m ild mr and tr and pr Diony Currie MD [id number],C,ef 55 Diony Currie MD [id number],C,mild mr and t r and pr Diony Currie MD [id number],C,NEG UACR A1C AND VIT D Diony Currie MD [id number],B, H is updated medication list for this problem includes: Ezetimibe 10 Mg Tablet (Ezetimibe) ..... Take 1 tablet by mouth every day Rosuvastatin 40 Mg Tablet (Rosuvastatin) ..... Take 1 tablet by mouth every day C HOL: 94 (02/26/2020) HDL: 36 (02/26/2020) Diony Currie MD [id number],S, A LL OPEN 17, IF HAS MORE SX CAN DO ECP Diony Currie MD [id number],S,did not wnat pft Diony Currie MD [id number],B, Diony france MD [id number],B, H is updated medication list for this problem includes: Aspirin 81 Mg Tablet,delayed Release (dr/ec) (Aspirin) ..... Take 1 tablet by mouth every day BP today: 125/74 P rior BP: 140/80 (02/25/2020) Prior 10 Yr Risk Heart Disease: N/A (08/22/2016) Labs Reviewed: C reat: 1.26 (08/16/2017) C hol: 94 (02/26/2020) HDL: 36 (02/26/2020) Diony Currie MD [id number],S, Diony france MD [id number],S, n ml a1c, n ml vit d, Diony Currie MD [id number],S,no rx Diony Currie MD [id number],S,ef 45 Diony Currie MD [id number],S, Diony france MD [id number],S, Diony france MD [id number],S, Diony france MD :58 Diony Currie MD Cardiology: p ro 103 e f 55 Diony Currie MD Cardiology: H is updated medication list for this problem includes: Aspirin 81 Mg Tablet,delayed Release (dr/ec) (Aspirin) ..... Take 1 tablet by mouth every day BP today: 141/88 P rior BP: 125/74 (08/24/2021) Prior 10 Yr Risk Heart Disease: N/A (08/22/2016) Labs Reviewed: C reat: 1.23 (08/31/2021) C hol: 94 (02/26/2020) HDL: 36 (02/26/2020) Diony Currie MD Cardiology Diony Currie MD Cardiology Diony Currie MD Cardiology:corecte, up to date o n colon Diony Currie MD Cardiology Diony Currie MD Cardiology: A LL OPEN 17, IF HAS MORE SX CAN DO ECP Diony Currie MD Cardiology: m ild mr and tr and pr Diony Currie MD Cardiology: p ro 103 e f 55 Diony Currie MD Cardiology Diony Currie MD Cardiology Diony Currie MD Cardiology Diony Currie MD Cardiology: H is updated medication list for this problem includes: Aspirin 81 Mg Tablet,delayed Release (dr/ec) (Aspirin) ..... Take 1 tablet by mouth every day BP today: 141/88 P rior BP: 125/74 (08/24/2021) Prior 10 Yr Risk Heart Disease: N/A (08/22/2016) Labs Reviewed: C reat: 1.23 (08/31/2021) C hol: 94 (02/26/2020) HDL: 36 (02/26/2020) Diony Currie MD Cardiology Diony Currie MD Cardiology:neg vd N EG UACR A1C AND VIT D Diony Currie MD Cardiology Diony Currie MD Cardiology: A LL OPEN 17, IF HAS MORE SX CAN DO ECP Diony Currie MD TeleHealth: A LL OPEN 17, IF HAS MORE SX CAN DO ECP Diony Currie MD TeleHealth Diony Currie MD TeleHealth Diony Currie MD TeleHealth Diony Currie MD TeleHealth Diony Currie MD TeleHealth Diony Currie MD TeleHealth Diony Currie MD TeleHealth Diony Currie MD TeleHealth: N EG UACR A1C AND VIT D Diony Currie MD TeleHealth:pro 103 e f 55 Diony Currie MD TeleHealth: m ild mr and tr and pr Diony Currie MD :ef 55 Diony Currie MD :mild mr and tr and pr Diony corrales MD :NEG UACR A1C AND VIT D Diony fairchild MD Cardiology: H is updated medication list for this problem includes: Ezetimibe 10 Mg Tablet (Ezetimibe) ..... Take 1 tablet by mouth every day Rosuvastatin 40 Mg Tablet (Rosuvastatin) ..... Take 1 tablet by mouth every day C HOL: 94 (02/26/2020) HDL: 36 (02/26/2020) Diony Currie MD Cardiology: A LL OPEN 17, IF HAS MORE SX CAN DO ECP Diony Currie MD Cardiology:did not wnat pft Mira Currie MD Cardiology Diony Currie MD Cardiology: H is updated medication list for this problem includes: Aspirin 81 Mg Tablet,delayed Release (dr/ec) (Aspirin) ..... Take 1 tablet by mouth every day BP today: 125/74 P rior BP: 140/80 (02/25/2020) Prior 10 Yr Risk Heart Disease: N/A (08/22/2016) Labs Reviewed: C reat: 1.26 (08/16/2017) C hol: 94 (02/26/2020) HDL: 36 (02/26/2020) Diony Currie MD Cardiology Diony Curire MD Cardiology: n ml a1c, n ml vit d, Diony Currie MD Cardiology:no rx Diony Waller Cardiology:ef 45 Diony Waller Cardiology Diony Currie MD Cardiology Diony Currie MD Cardiology Diony Currie MD Cardiology Follow up : c ould not tolerate cpapa, did nt see dentis Diony Currie MD Cardiology Follow up Diony goodson MD Cardiology Follow up : n ml a1c, n ml vit d, Diony Currie MD Cardiology Follow up Diony goodson MD Cardiology Follow up : H is updated medication list for this problem includes: Aspirin Ec 81 Mg Tablet (Aspirin) ..... Take one tablet by mouth once daily BP today: 140/80 P rior BP: 132/80 (12/11/2018) Prior 10 Yr Risk Heart Disease: N/A (08/22/2016) Labs Reviewed: C reat: 1.26 (08/16/2017) C hol: 213 (11/06/2018) HDL: 37 (11/06/2018) Diony Currie MD Cardiology Follow up Diony goodson MD Cardiology Follow up Diony goodson MD Cardiology Follow up Diony goodson MD Cardiology Follow up Diony goodson MD Cardiology Follow up :mild ai an d mr Diony Currie MD Cardiology;ecjp[oemd f: T he following medications were removed from the medication list: Losartan Potassium 25 Mg Oral Tablet (Losartan potassium) ..... Take one tablet daily His updated medication list for this problem includes: Aspirin Adult Low Dose 81 Mg Oral Tablet Delayed Release (Aspirin) ..... One tab by mouth daily Propranolol Hcl 10 Mg Oral Tablet (Propranolol hcl) ..... Take one tablet by mouth three times daily BP today: 132/80 P rior BP: 130/100 (11/05/2018) Prior 10 Yr Risk Heart Disease: N/A (08/22/2016) Labs Reviewed: C reat: 1.26 (08/16/2017) C hol: 213 (11/06/2018) HDL: 37 (11/06/2018) Diony Currie MD Cardiology;ecjp[oemd f: His updated medication list for this problem includes: Synthroid Tablet (Levothyroxine sodium tabs) Labs Reviewed: T SH: 3.870 ??IU/ML (06/27/2016) Total T4: 8.3 ??G/DL (06/27/2016) H gBA1c: 5.4 (04/29/2015) C hol: 213 (11/06/2018) HDL: 37 (11/06/2018) Diony Currie MD Cardiology;ecjp[oemd f: d id not like adiepx o r topama Diony Currie MD Cardiology;ecjp[oemd f: U PT TODATE ON COLON c orrected on rx Diony Currie MD Cardiology;ecjp[oemd f: n ml a1c, n ml vit d, Diony Currie MD Cardiology;ecjp[oemdf:did not wa ntpft Diony Currie MD Cardiology;ecjp[oemd f: e f 45, nml pro Diony Currie MD Cardiology;ecjp[oemdf:will stop beta Diony Currie MD Cardiology;ecjp[oemd f:could not tolerate cpapa, will see dentist Diony Currie MD Cardiology;ecjp[oemd f: H is updated medication list for this problem includes: Zetia 10 Mg Oral Tablet (Ezetimibe) ..... One tab. daily with his lipitor Lipitor 20 Mg Oral Tablet (Atorvastatin calcium) ..... One tab. daily C HOL: 213 (11/06/2018) HDL: 37 (11/06/2018) Diony Currie MD Cardiology: H is updated medication list for this problem includes: Synthroid Tablet (Levothyroxine sodium tabs) Labs Reviewed: T SH: 3.870 ??IU/ML (06/27/2016) Total T4: 8.3 ??G/DL (06/27/2016) H gBA1c: 5.4 (04/29/2015) C hol: 143 (08/16/2017) HDL: 31 (08/16/2017) Diony Currie MD Cardiology:due tot chandte in po sti, hotlter was neg Diony Currie MD Cardiology Diony Currie MD Cardiology: T he following medications were removed from the medication list: Zetia 10 Mg Oral Tablet (Ezetimibe) ..... One tab. daily, take with liptor His updated medication list for this problem includes: Lipitor 20 Mg Oral Tablet (Atorvastatin calcium) ..... One tab. daily C HOL: 143 (08/16/2017) HDL: 31 (08/16/2017) Diony Currie MD Cardiology: n ml a1c, NML HOLTER n ml pro, nml ef, nml b12 ib rx, nml vit d, nml tsh, nml tsh on rx Diony Currie MD Cardiology Diony Currie MD Cardiology: H is updated medication list for this problem includes: Losartan Potassium 25 Mg Oral Tablet (Losartan potassium) ..... Take one tablet daily Aspirin Adult Low Dose 81 Mg Oral Tablet Delayed Release (Aspirin) ..... One tab by mouth daily Propranolol Hcl 10 Mg Oral Tablet (Propranolol hcl) ..... Take one tablet by mouth three times daily Diony Currie MD Cardiology Diony Currie MD Cardiology:ef 45, nml pro Diony Currie MD Cardiology: d id not like adiepx o r topama Diony Currie MD Cardiology: A LL OPEN 17, IF HAS MORE SX CAN DO ECP Diony Currie MD Cardiology: U PT TODATE ON COLON c orrected on rx Diony Currie MD Cardiology Follow up : A LL OPEN 17, IF HAS MORE SX CAN DO ECP Diony Currie MD Cardiology Follow up : H is updated medication list for this problem includes: Synthroid Tablet (Levothyroxine sodium tabs) Labs Reviewed: T SH: 3.870 ??IU/ML (06/27/2016) Total T4: 8.3 ??G/DL (06/27/2016) H gBA1c: 5.4 (04/29/2015) C hol: 193.0 (06/27/2016) HDL: 39.0 (06/27/2016) T.0 (06/27/2016) Diony Currie MD Cardiology Follow up : H is updated medication list for this problem includes: Lipitor 40 Mg Oral Tablet (Atorvastatin calcium) ..... 1pill a day C HOL: 193.0 (06/27/2016) HDL: 39.0 (06/27/2016) T.0 (06/27/2016) Diony Currie MD Cardiology Follow up : U PT TODATE ON COLON c orrected on rx Diony Currie MD Cardiology Follow up :did not li ke adiepx Diony Currie MD Cardiology Follow up Diony goodson MD Cardiology Follow up :need to sto rx due to dizzy and lwo bp Diony Currie MD Cardiology Follow up : 4 5 by cath Diony Currie MD Cardiology Follow up : n ml a1c, NML HOLTER n ml pro, nml ef, nml b12 ib rx, nml vit d, nml tsh, nml tsh on rx Diony Currie MD Cardiology Follow up :will stop arb and betat Diony Currie MD Cardiology:WIULL TRY DIET PILL H francis Currie MD Cardiology: n ml a1c, NML HOLTER n ml pro, nml ef, nml b12 ib rx, nml vit d, nml tsh, nml tsh on rx Diony Currie MD Cardiology Diony Currie MD Cardiology:CHOL: 193 .0 (06/27/2016) HDL: 39.0 (06/27/2016) T.0 (06/27/2016) The following medications were removed from the medication list: Zetia 10 Mg Oral Tablet (Ezetimibe) ..... One tab. daily His updated medication list for this problem includes: Atorvastatin Calcium 20 Mg Oral Tablet (Atorvastatin calcium) ..... One a day Diony Currie MD Cardiology: B P today: 127/78 P rior BP: 142/68 (08/22/2016) Prior 10 Yr Risk Heart Disease: N/A (08/22/2016) Labs Reviewed: C reat: 1.3 (04/29/2015) C hol: 193.0 (06/27/2016) HDL: 39.0 (06/27/2016) T.0 (06/27/2016) His updated medication list for this problem includes: Diovan 160 Mg Oral Tablet (Valsartan) ..... One tab. daily Metoprolol Tartrate 25 Mg Oral Tablet (Metoprolol tartrate) ..... 1/2 in am Aspirin Adult Low Dose 81 Mg Oral Tablet Delayed Release (Aspirin) ..... One tab by mouth daily Diony Currie MD Cardiology:CANNOT USE MACHINEK C AN SEE DENTIS Diony Currie MD Cardiology:UPT TODAT E ON COLON c orrected on rx Diony Currie MD Cardiology:45 by cath Diony florence MD Cardiology:ALL OPEN 17, IF HAS M ORE SX CAN DO ECP Diony Currie MD Cardiology - TRAFFIC SIGNAL TECHNICIAN karan castellano:BP improved. Continue current meds. H is updated medication list for this problem includes: Diovan 80 Mg Oral Tabs (Valsartan) ..... One a day Metoprolol Tartrate 25 Mg Oral Tabs (Metoprolol tartrate) ..... 1/2 in am Aspirin Adult Low Dose 81 Mg Oral Tbec (Aspirin) ..... One tab by mouth daily Kelsie Mckeon NP Cardiology - TRAFFIC SIGNAL TECHNICIAN karan castellano:EF decreased since SD even after revascularization with CABG. Will undergo nuclear stress test. H is updated medication list for this problem includes: Diovan 80 Mg Oral Tabs (Valsartan) ..... One a day Metoprolol Tartrate 25 Mg Oral Tabs (Metoprolol tartrate) ..... 1/2 in am Aspirin Adult Low Dose 81 Mg Oral Tbec (Aspirin) ..... One tab by mouth daily Kelsie Mckeon NP Cardiology Follow up :nml a1c n ml pro, nml ef, nml b12 ib rx, nml vit d, nml tsh, nml tsh on rx Diony Currie MD Cardiology Follow up :mild, need s cpap Diony Currie MD Cardiology Follow up :ef now 45 will adjust rx Diony Currie MD Cardiology: H is updated medication list for this problem includes: Metoprolol Tartrate 25 Mg Oral Tabs (Metoprolol tartrate) ..... 1/2 in am Aspirin Adult Low Dose 81 Mg Oral Tbec (Aspirin) ..... One tab by mouth daily BP today: 141/92 P rior BP: 105/74 (04/28/2015) Labs Reviewed: C reat: 1.3 (04/29/2015) C hol: 133.0 (04/29/2015) HDL: 34.0 (04/29/2015) T.0 (04/29/2015) Diony Currie MD Cardiology:nml pro, nml ef, nml b12 ib rx, nml vit d, nml tsh, nml tsh on rx Diony Currie MD Cardiology:better wtih less beta libra Diony Currie MD Cardiology: H is updated medication list for this problem includes: Zocor 20 Mg Tabs (Simvastatin) ..... One tab. at bedtime C HOL: 133.0 (04/29/2015) HDL: 34.0 (04/29/2015) T.0 (04/29/2015) Diony Currie MD Cardiology: n eeds fu home study Diony Currie MD Cardiology:nml ef 2015 n ml pro Diony Currie MD Cardiology:less sob off amio M inimal Obstructive Airways Disease. Following administration of bronchodilators, there is positive but not a significant response. N o restriction. T he diffusing capacity is normal. d d not like pft Diony Currie MD Cardiology Diony Currie MD Cardiology Diony Currie MD Cardiology:will check Diony florence MD Cardiology:needs fu home study H francis Currie MD Cardiology Diony Currie MD Cardiology Diony Currie MD Cardiology Diony Currie MD Cardiology:likely wt but will r/o amio infulence,will stop amio Diony Currie MD Cardiology:at night will stop ev ening betablocker Diony Currie MD Cardiology:will fu echo Diony fairchild MD Cardiology:corrected on rx Aniket Currie MD Cardiology:Rhythm: S inus Rhythm with very rare Ventricular ectopics which represented <0.1% of total beat count. T he average heart rate was 69 BPM with a maximum heart rate of 88 BPM at 07:59:20 and a minimum heart rate of 59 BPM at 13:32:00. 1 4 Ventricular ectopics were noted. Ventricular ectopics were observed as 14 isolated beats. P atient diary was submitted with symptoms noted. Diony Currie MD Cardiology:controlled Diony florence MD Cardiology:after cabg but resolv ed Diony Currie MD Cardiology:complicat ed by chf which resolvded, post cabg ef 53%, will stop kcl and lasxi now Diony Currie MD Cardiology:nml tsh, will stop am io when runs out Diony Currie MD Cardiology:iron and b12 low, on b12 now Diony Currie MD Cardiology:resolved post surgery , Diony Currie MD Date Name LIPID PANEL COMPREHENSIVE METABO LIC PANEL, W/EGFR Stress Cardiac PET-C T Lipoprotein (a) CRP, high sensitivit y Microalb/Creatinine Urine, Random PROBNP, N TERMINAL BASIC METABOLIC PANE L W/EGFR Complete Echo Sleep Study Home Holter Monitor 24 Hr Complete Echo COVID19 High Affinit y Antibodies (LC) LIPID PANEL FOLATE, SERUM Mobile Cardiac Tele DLCO - [id number] FRC - 39447 FVC - [id number] Complete Echo LIPID PANEL PROBNP, N TERMINAL IRON AND TOTAL IRON BINDING CAPACITY FERRITIN CBC (INCLUDES DIFF/P LT) LIPID PANEL COMPREHENSIVE METABO LIC PANEL, W/EGFR COMPREHENSIVE METABO LIC PANEL, W/EGFR CBC (INCLUDES DIFF/P LT) IRON AND TOTAL IRON BINDING CAPACITY FERRITIN PROBNP, N TERMINAL Mobile Cardiac Tele LIPID PANEL Complete Echo LIPID PANEL PROBNP, N TERMINAL Complete Echo IRON AND TOTAL IRON BINDING CAPACITY FERRITIN CBC (INCLUDES DIFF/P LT) Complete Echo THYROID PANEL WITH T SH, 3RD GENERATION LIPID PANEL FERRITIN IRON AND TOTAL IRON BINDING CAPACITY PROBNP, N TERMINAL Complete Echo FERRITIN IRON AND TOTAL IRON BINDING CAPACITY Holter Monitor 24 Hr Sleep Study Home Sleep Study Home LIPID PANEL X-Ray, Chest, PA & L ateral Complete Echo VITAMIN D, 25-HYDROX Y, LC/MS/MS VITAMIN B12 HEMOGLOBIN A1c PROBNP, N TERMINAL DLCO - 92067 FRC - 56740 FVC - 62237 COMPREHENSIVE METABO LIC PANEL W/EGFR THYROID PANEL WITH T SH, 3RD GENERATION Holter Monitor 24 Hr Holter Monitor 24 Hr COMPREHENSIVE METABO LIC PANEL W/EGFR IRON AND TOTAL IRON BINDING CAPACITY CBC (H/H, RBC, INDIC ES, WBC, PLT) HISTORY OF PROCEDURES Procedure Date Procedure Name Provider Procedure Notes S tatus EKG Diony Currie MD complete d EKG Diony Currie MD complete d EKG Diony Currie MD complete d Mobile Cardiac Telem etry - Tech Diony Currie MD completed Mobile Cardiac Telem etry - Prof Diony Currie MD completed SNOMED-CT: [id number] Current Medications Documented Diony Currie MD completed Stress EKG Srinivasa Mckenna MD completed Regadenoson, 4 units Diony Currie MD completed Cardiolite, 2 units Diony Currie MD completed SPECT Images Srinivasa Mckenna MD complet ed SNOMED-CT: [id number] Current Medications Documented Diony Currie MD completed Holter, 24 or 48 Diony Currie MD co mpleted EKG Diony Currie MD complete d SNOMED-CT: [id number] 168164 Current Medications Documented Diony Currie MD completed FVC - 02977 Diony Currie MD complet ed FRC - 05557 Diony Currie MD complet ed DLCO - 45567 Diony Currie MD comple tone SNOMED-CT: [id number] 729158 Current Medications Documented Diony Currie MD completed SNOMED-CT: [id number] 285350 Current Medications Documented Diony Currie MD completed
--- OUTSIDE RECORDS SUMMARY | 2024-04-02 19:06 | XMS_ITS | Continuity of Care Document ---
Author Organization [facility] Address [address] [place] [id number] Phone Care Team Providers Care Mink Slicer Name Role Phone Maciel Reeves DO Unavailable Unavailable Allergies, Adverse Reactions, Alerts Substance Reaction Status Criticality No Known Allergies Active No Inform ation Procedures Procedure Date Global/Postop followup visit Tendon sheath incision, trigger finger J Advance Directives Directive Yes / No Effective Date File Name No Information Encounters Encounter Description Practice Location Reason(s) For Visit Diagnoses Date Provider Providers Copied on Encounter [facility], [address] [place] [address], [id number], tel:[phone] [facility] left fourth finger (chief complaint) Encounter for other orthopedic aftercare [address] [address], [place], [place], [id number] , [place]. tel:[phone] Referring Provider: Maciel Waller, [address] [facility] [address], [place], [address] . tel:[phone] [facility], [address] [place] [address], [id number], [place] tel:[phone] [facility] No Information [address] [place] [address], [facility] [address], [place], [place], [id number] , [place]. tel: [phone] Referring Provider: Maciel Waller, [address] [facility] [address], [place], [address] . tel:[phone] Family History Family Member Type Diagnosis Age At Onset Father Problem (finding) Heart Disease Immunizations Vaccine Date Status Comments Pneumo (2 yrs or older) (PPV23) administe red Source: Other Provider Pneumo (2 yrs or older)(PPV) administered Source: Other Provider Payers Payer name Insurance type Covered democrat ID Vishal horta(s) [facility] [id number] Social History Type Description Quantity Date Captured Comments Alcohol Use Details Unknown Caffeine Use Details Unknown Tobacco Use Status Current non-smoker Smoking Status Never smoker Non-Smoking Tobacco Use Details : No Details Available : No Details Available Sex Male Chief Complaint And Reason For Visit From encounter dated '09/18/2023 12:55'. left fourth finger (chief complaint). Description: Mihai presents to office for first post-op appointment on left finger A1 matty release date of surgery 09/10/2023. Doing good. Reason For Referral Reason For Referral No Information History Of Present Illness Encounter Date Complaint History Of Prese nt Illness left fourth finger Mihai present s to office for first post-op appointment on left finger A1 matty release date of surgery 09/10/2023. Doing good. Functional Status Date Functional Assessmen t No Information Instructions Date Instruction Additional Infor mation No Information Assessments Type Assessment Date assessment Encounter for other orthopedic a ftercare Patient Care Teams Name Effective Dates (start - stop) Status Members No Information
--- OUTSIDE RECORDS SUMMARY | 2024-04-02 19:06 | XMS_ITS | Clinical Summary ---
Author Organization [facility] Address [address] [place] [address] Phone Care Team Providers Care Retail Associate Manager Bilingual Name Role Phone Marquez Torres MD Primary Care Provider [phone] Allergies No known active allergies Encounters Date Type Department Care Team Description 04/01/2024 External Device Data [facility] ABSTRACTION Provider, Abstract 03/25/2024 External Device Data [facility] ABSTRACTION Provider, Abstract 03/17/2024 External Device Data [facility] ABSTRACTION Provider, Abstract 02/11/2024 External Device Data [facility] ABSTRACTION Provider, Abstract 01/28/2024 External Device Data [facility] ABSTRACTION Provider, Abstract 01/08/2024 External Device Data [facility] ABSTRACTION Provider, Abstract from Last 3 Months Social History Tobacco Use Types Packs/Day Years Used Date Smoking Tobacco: Never Assessed Feeling Safe Answer Date Recorded Are you in a relationship wi th someone who hurts you emotionally and/or physically? No 03/28/2023 Sex and Gender Information Value Date Recorded Sex Assigned at Not on file Legal Sex Male 5:21 PM AUCTION CLERK Gender Identity Not on file Sexual Orientation Not on file Last Filed Vital Signs Vital Sign Reading Time Taken Comments Blood Pressure 134/71 03/28/2023 7:46 PM AUCTION CLERK Pulse 92 03/28/2023 7:46 PM AUCTION CLERK Temperature 37.3 ??C (99.1 ??F) 03/28/2023 5:45 PM CS T Respiratory Rate 15 03/28/2023 7:46 PM AUCTION CLERK Oxygen Saturation 96% 03/28/2023 7:46 PM AUCTION CLERK Inhaled Oxygen Concentration - - Weight 93 kg (205 lb) 03/28/2023 5:45 PM AUCTION CLERK Height 172.7 cm (5' 8 ) 03/28/2023 5:45 PM AUCTION CLERK Body Mass Index 31.17 03/28/2023 5:45 PM AUCTION CLERK Plan of Treatment Health Maintenance Due Date Last Done Comments Pre-Diabetes and Diabetes Screening 1955 DTAP/TDAP/TD VACCINES (1 - Tdap) 1974 COLORECTAL SCREENING 2000 Colorectal Cancer Screening 2000 FIT-DNA Q 3 years 2000 FIT/FOBT Q 1 year 2000 Flex Sig/CT Colonography Q 5 years 2000 PNEUMOCOCCAL VACCINE 65+ YEARS (1 of 1 - PCV) 04/27/19 ZOSTER VACCINE (1 of 2) 2005 INFLUENZA VACCINE (#1) 2023 RSV VACCINE (60+ or ) (1 - 1-dose 75+ series) 2030 Insurance Care Teams Retail Associate Manager Bilingual Relationship Specialty Start Date End Date Marquez Torres MD PCP - General Family Practice 03/28/23
--- OUTSIDE RECORDS SUMMARY | 2024-04-02 19:06 | XMS_ITS | Encounter Summary ---
Author Organization [facility] Address [address] [place] [address] Care Team Providers Care Frame Builder Name Role Phone Marquez Torres MD Primary Care Provider [phone] Reason for Visit * Reason Comments Question Encounter Details Date Type Department Care Team (Late st Contact Info) Description 10/10/2023 Telephone [facility] Care [facility] [address] [place] [address] [place] [address] [facility] [address], [place] [address] Question Social History Tobacco Use Types Packs/Day Years Used Date Smoking Tobacco: Never Assessed Feeling Safe Answer Date Recorded Are you in a relationship wi th someone who hurts you emotionally and/or physically? No 03/28/2023 Sex and Gender Information Value Date Recorded Sex Assigned at Not on file Legal Sex Male 5:21 PM RN PERINATAL Gender Identity Not on file Sexual Orientation Not on file documented as of this encounter Miscellaneous Notes * Telephone Encounter - Levi Rivers - 10/10/2023 3:51 PM CDT Called pt and LVM with insurance coverage info. * Telephone Encounter - Stacy Lui - 10/10/2023 2:54 PM CDT Copied from [facility] #[id number]. Topic: CPA Information Request - Insurance/Estimate >> Oct 10, 2023 2:46 PM Stacy Escobedo wrote: Caller Name: Mihai Wolff Callback Number: [phone] (home) Call Notes: [employer] said that Dr. Torres will no longer be in network starting November 08.Patient has an appointment in November and wanted to know before this appointment when Dr. Torres will be in network again. Patient has a list of medications that will be due for a refill as well. Please call back and advise. Caller is requesting information about In vs Out of Network Patient Access Instructions 1. Inform patient to contact their insurance company for questions concerning coverage. 2. Select [employer] and [employer]. documented in this encounter Plan of Treatment Not on file documented as of this encounter Visit Diagnoses Not on filedocumented in this encounter Care Teams Frame Builder Relationship Specialty Start Date End Date Marquez Torres MD PCP - General Family Practice 03/28/23 documented as of this encounter
== END 2024-03-31 14:37 | disposition home or self-care (01) ==
PROVIDERS: PCP Nurse Practitioner Family; Visit Provider Nurse Practitioner Family
DX: D64.9 Anemia, unspecified (principal); R79.89 Other specified abnormal findings of blood chemistry; Z79.899 Other long term (current) drug therapy
CPT/HCPCS: 36415; 82607; 82728; 83540; 83550; 84443; 85027

== ENCOUNTER 2024-04-17 13:41 | Emergency (ER) | payer OTHER, SELFPAY ==
--- NOTE | ~2024-04-17 | CT_ITS ---
EXAMINATION: CT brain wo con DATE: 04/17/2024 16:18 INDICATION: Fall. TECHNIQUE: Computed tomography (CT) of the head was performed without intravenous contrast. The mA wa s adjusted according to patient size. Iterative reconstruction technique was employed. The dose-lengt h product was 605.33 mGy-cm. COMPARISON: None FINDINGS: There is no intracranial hemorrhage, acute infarction, or abnormal intracranial mass lesion . There are scattered areas of low attenuation in the cerebral white matter, which is within normal l imits for the patient's age. The ventricles are normal in size. There is mild mucosal thickening in t he paranasal sinuses. There is thickening and sclerosis of the horvath of the maxillary and sphenoid si nuses, consistent with chronic sinusitis. The mastoid air cells are normal. IMPRESSION: 1. Normal aging brain. 2. Chronic sinusitis. Reviewed, dictated and finalized at location A. EATIONAL THERAPY TECHNICIAN
--- NOTE | ~2024-04-17 | CT_ITS ---
EXAMINATION: CT thoracic lumbar wo con DATE: 04/17/2024 16:18 INDICATION: Fall. TECHNIQUE: Computed tomography (CT) of the thoracic and lumbar spine was performed without intravenou s contrast. Automated exposure control and iterative reconstruction technique were employed. The dose -length product was 1646.88 mGy-cm. COMPARISON: None FINDINGS: CT THORACIC SPINE: Calcified right lung nodules and calcified right hilar and mediastinal lymph nodes are consistent with old granulomatous disease. Calcifications in the spleen are consistent with old granulomatous disease. There is 10 degrees levoscoliosis of thoracic spine. There are changes of ante rior fusion procedure from C5 to C7 with anterior plate and screws. There is mild chronic anterior we dging of T1, T9, T11, and T12 vertebral bodies. There are bridging endplate osteophytes at T3-T4 and from T6 to T9 and T10 to T12, consistent with diffuse idiopathic skeletal hyperostosis (DISH). There is mildly decreased disc height at T10-T11 with interbody fusion. There is multilevel facet joint ost eoarthritis, severe on the right at T4-T5. On the right, there is mild neural foraminal stenosis at T 1-T2, T3-T4, T4-T5, and T10-T11. On the left, there is mild neural foraminal stenosis at T1-T2 and T2 -T3. No central canal stenosis. CT LUMBAR SPINE: The prostate is mildly enlarged. Alignment is normal. There is mild chronic anterior wedging of L1 vertebral body. There is mildly decreased disc height at L1-L2. There is interbody fus ion at L4-L5. There are changes of posterior fusion procedure from L4 to S1 with pedicle screws. The following disc levels are specifically discussed: L1-L2: The disc is bulging. There is severe bilateral facet joint osteoarthritis. There is moderate r ight and mild left neural foraminal stenosis. There is mild central canal stenosis. L2-L3: The disc is bulging. There is severe bilateral facet joint osteoarthritis. There is mild bilat eral neural foraminal stenosis. There is mild central canal stenosis. L3-L4: The disc is bulging. There is severe bilateral facet joint osteoarthritis. There is moderate r ight and mild left neural foraminal stenosis. There is no central canal stenosis. L4-L5: There is a central protrusion. There is moderate facet joint hypertrophy. There is mild bilate ral neural foraminal stenosis. There is mild central canal stenosis. L5-S1: The disc does not extend beyond the endplate margin. There is moderate bilateral facet joint h ypertrophy. There is mild bilateral neural foraminal stenosis. There is no central canal stenosis. IMPRESSION: 1. No fracture. 2. Mild thoracic and lumbar spondylosis. 3. DISH. 4. Posterior fusion procedure from L4 to S1. Reviewed, dictated and finalized at location A. RING MACHINE OPERATOR AUTOMATIC
--- NOTE | ~2024-04-17 | CT_ITS ---
EXAMINATION: CT cervical spine wo con DATE: 04/17/2024 16:18 INDICATION: Fall TECHNIQUE: Computed tomography (CT) of the cervical spine was performed without intravenous contrast. Automated exposure control and iterative reconstruction technique were employed. The dose-length pro duct was 485.71 mGy-cm. COMPARISON: None FINDINGS: Alignment is normal. Moderate osteoarthritis at the atlantoaxial articulation. C5-C7 the anterior spi nal fusion with plate and screw fixation at C6-C7. There is early fusion between the bilateral C5-C6 and C6-C7 facet joints. Unfused cervical vertebral body heights are normal. Chronic appearing mild an terior wedging at T1, minimal anterior vertebral body height loss at T2. No acute fractures. Mild dis c height loss at C4-C5. Small central disc protrusion at C2-C3. Eccentric to the left disc bulge at C 3-C4 and diffuse disc bulge at C4-C5. There is mild central canal stenosis at each of these levels as well as associated with small posterior osteophytes at the fused C5-6 and C6-C7 disc spaces. There i s multilevel moderate right-sided and moderate and severe left-sided facet osteoarthritis. There is m oderate neural foraminal stenosis on the right at C2-C3 and mild neural from stenosis throughout the remainder of the cervical spine. Atherosclerotic calcific changes at the bilateral carotid bulbs. Cer vical soft tissues are unremarkable. The apices of the lungs are clear. IMPRESSION: 1. Mild cervical spondylosis with anterior fusion at C5-C7. No acute osseous abnormality. Reviewed, dictated and finalized at location B. M EXAMINER IMPRESSION: 1. Mild cervical spondylosis with anterior fusion at C5-C7. No acute osseous ab normality.
--- OUTSIDE RECORDS SUMMARY | 2024-04-17 13:43 | XMS_ITS | Encounter Summary ---
Author Organization [facility] Address [address] [place] [address] Care Team Providers Care Training Development Director Name Role Phone Marquez Torres MD Primary Care Provider [phone] Reason for Visit * Reason Comments Lab Results Encounter Details Date Type Department Care Team (Late st Contact Info) Description 10/08/2023 Telephone [facility] Care [facility] [address] [place] [address] [place] [address] [facility] [address], [place] [address] Lab Results Social History Tobacco Use Types Packs/Day Years Used Date Smoking Tobacco: Never Assessed Feeling Safe Answer Date Recorded Are you in a relationship wi th someone who hurts you emotionally and/or physically? No 03/28/2023 Sex and Gender Information Value Date Recorded Sex Assigned at Not on file Legal Sex Male 5:21 PM ACCESS REGISTRAR Gender Identity Not on file Sexual Orientation Not on file documented as of this encounter Miscellaneous Notes * Telephone Encounter - Levi Rivers - 10/10/2023 2:21 PM CDT Called pt to inform him about appointment date with Dr. Torres * Telephone Encounter - Brenda Cole - 10/08/2023 11:12 AM CDT Copied from [facility] #[id number]. Topic: Patient or Caregiver Communication Request >> Oct 08, 2023 11:09 AM Brenda Corral wrote: Patient or Caregiver insisting that a message be sent to Care Team Caller: Mihai Wolff Patient/Caregiver Callback Number: [phone] Call Notes: Pt is calling in regards of being scheduled with . Pt states he had an appointment with yesterday on 10/06, yet he moved locations. Requesting call back with further information. documented in this encounter Plan of Treatment Not on file documented as of this encounter Visit Diagnoses Not on filedocumented in this encounter Care Teams Training Development Director Relationship Specialty Start Date End Date Marquez Torres MD PCP - General Family Practice 03/28/23 documented as of this encounter
--- OUTSIDE RECORDS SUMMARY | 2024-04-17 13:43 | XMS_ITS | Continuity of Care Document ---
Author Organization [facility] Address [address] [place] [id number] Phone Care Team Providers Care Client Support Coordinator Name Role Phone Maciel Reeves DO Unavailable [...] Provider Providers Copied on Encounter [facility], [address] [place] [address], [id number], tel:[phone] [facility] left fourth finger (chief complaint) Encounter for other orthopedic aftercare [address] [address], [place], [place], [id number] , [place]. tel:[phone] Referring Provider: Maciel Waller, [address] [facility] [address], [place], [address] . tel:[phone] [facility], [address] [place] [address], [id number], [place] tel:[phone] [facility] No Information [address] [place] [address], [facility] [address], [place], [place], [id number] , [place]. [phone] Referring Provider: Maciel Waller, [address] [facility] [address], [place], [address] . tel:[phone] Family History Family Member Type Diagnosis Age At Onset Father Problem (finding) Heart Disease Immunizations Vaccine Date Status Comments Pneumo (2 yrs or older) (PPV23) administe red Source: Other Provider Pneumo (2 yrs or older)(PPV) administered Source: Other Provider Payers Payer name Insurance type Covered alliance party ID Vishal horta(s) [facility] [id number] Social History Type Description Quantity Date Captured [...]
--- OUTSIDE RECORDS SUMMARY | 2024-04-17 13:43 | XMS_ITS | Encounter Summary ---
Author Organization [facility] Address [address] [place] [address] Care Team Providers Care Field Education Coordinator Name Role Phone Marquez Torres MD Primary Care Provider [phone] Reason for Visit * Reason Comments Question Encounter Details Date Type Department Care Team (Late st Contact Info) Description 10/10/2023 Telephone [facility] Care [facility] [address] [place] [address] [place] [address] [facility] [address] [address] Question Social History Tobacco Use Types Packs/Day Years Used Date Smoking Tobacco: Never Assessed Feeling Safe Answer Date Recorded Are you in a relationship wi th someone who hurts you emotionally and/or physically? 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 * Telephone Encounter - tSacy Lui - 10/10/2023 2:54 PM CDT Copied from [facility] #[id number]. Topic: CPA Information Request - Insurance/Estimate >> Oct 10, 2023 2:46 PM Stacy Escobedo wrote: Caller Name: Mihai Wolff Callback Number: [phone] (home) Call Notes: [employer] said that [...] on filedocumented in this encounter Care Teams Field Education Coordinator Relationship Specialty Start Date End Date Marquez Torres MD PCP - General Family Practice 03/28/23 documented as of this encounter
--- OUTSIDE RECORDS SUMMARY | 2024-04-17 13:44 | XMS_ITS | Clinical Summary ---
Author Organization [facility] Address [address] [place] [address] Phone Care Team Providers Care Commercial Sales Representative Name Role Phone Marquez Torres MD Primary Care Provider [phone] Allergies No known active allergies Encounters Date Type Department Care Team Description 04/07/2024 External Device Data [facility] ABSTRACTION Provider, Abstract 04/01/2024 External Device Data [facility] ABSTRACTION Provider, Abstract 04/01/2024 External Device Data [facility] ABSTRACTION Provider, [...] on file Legal Sex Male 5:21 PM COMPUTER TRAINING SPECIALIST Gender Identity Not on file Sexual Orientation Not on file Last Filed Vital Signs Vital Sign Reading Time Taken Comments Blood Pressure 134/71 03/28/2023 7:46 PM COMPUTER TRAINING SPECIALIST Pulse 92 03/28/2023 7:46 PM COMPUTER TRAINING SPECIALIST Temperature 37.3 C (99.1 F) 03/28/2023 5:45 PM COMPUTER TRAINING SPECIALIST Respiratory Rate 15 03/28/2023 7:46 PM COMPUTER TRAINING SPECIALIST Oxygen Saturation 96% 03/28/2023 7:46 PM COMPUTER TRAINING SPECIALIST Inhaled Oxygen Concentration - - Weight 93 kg (205 lb) 03/28/2023 5:45 PM COMPUTER TRAINING SPECIALIST Height 172.7 cm (5' 8 ) 03/28/2023 5:45 PM COMPUTER TRAINING SPECIALIST Body Mass Index 31.17 03/28/2023 5:45 PM COMPUTER TRAINING SPECIALIST Plan of Treatment Health Maintenance Due Date Last Done Comments Pre-Diabetes and Diabetes Screening 1955 DTAP/TDAP/TD VACCINES (1 - Tdap) 1974 COLORECTAL SCREENING 2000 Colorectal Cancer Screening 2000 FIT-DNA Q 3 years 2000 FIT/FOBT Q 1 year 2000 Flex Sig/CT Colonography Q 5 years 2000 PNEUMOCOCCAL VACCINE 65+ YEARS (1 of 1 - PCV) 04/27/19 06 ZOSTER VACCINE (1 of 2) 2005 INFLUENZA VACCINE (#1) 2023 RSV VACCINE (60+ or ) (1 - 1-dose 75+ series) 2030 Insurance [facility] [place] Address: [place] [address] Care Teams Commercial Sales Representative Relationship Specialty Start Date End Date Marquez Torres MD PCP - General Family Practice 03/28/23
--- OUTSIDE RECORDS SUMMARY | 2024-04-17 13:44 | XMS_ITS | Continuity of Care Document ---
Author Organization [facility] Address [address] [place] [address] Phone Care Team Providers Care Commercial Teller Name Role Phone Law Dwyer MD Unavailable Unavailable Allergies, Adverse Reactions, Alerts Substance Reaction Status Criticality codeine Anaphylaxis Active No Information Medications Medication Instructions Dosage Effective Dates (start - stop) Status Comments EFUDEX 5% APPLICS 1 QHS - Active Apply vaseline around area then use q-tip to apply medication. ZOLOFT 100 MG TABLET 2 BID - Activ e TEGRETOL 200MG TABS 1 QHS - Active Advance Directives Directive Yes / No Effective Date File Name No Information Encounters Encounter Description Practice Location Reason(s) For Visit Diagnoses Date Provider Providers Copied on Encounter [facility], [address], [place], [place], [id number], tel:[phone] [facility] No Information Reymundo Foy. [address] [facility], [facility] [address], [place], [id number]. tel:[phone] Referring Provider: Huber Garcia, [address] [place], [address]. tel:[phone] [facility], [address], [place], [place], [id number], tel:[phone] [place] No Information Zo Barbosa. [address] [facility] [address], [place], [address], [place]. tel:[phone] [facility], [address], [place], [place], [id number], tel:[phone] [place] AC SUPP OTITIS MEDIA NOSACTINIC KERATOSIS Zo Barbosa. [address], [place], [place], [facility], . tel:[phone] [facility], [address], [place], [place], [address] [place] [address], tel:[phone] [place] DEPRESSIVE DISORDER NEC Zo Estevez. [address], [place], [place], [address] [place] [address], . tel:[phone] [facility], [address], [place], [place], [address] [place] [address], tel:[phone] [place] No Information Zo Familia. [address], [place], [place], [facility], . tel:[phone] [facility], [address], [place], [place], [address] [place] [address], tel:[phone] [place] JOINT PAIN-PELVISSC IATICA Elder Zayas. [address], [place], [place], [address] [place] [address], . tel:[phone] [facility], [address], [place], [place], [address] [place] [address], tel:[phone] [place] DISORDER OF PENIS NECINSOMNIA NOS Zo Estevez. [address], [place], [place], [address] [place] [address], . tel:[phone] [facility], [address], [place], [place], [address] [place] [address], tel:[phone] [place] JOINT PAIN-SHLDER Zo Estevez. [facility], [place], [place], [address] [place] [address], . tel:[phone] Family History Family Member Type Diagnosis Age At Onset No Information Payers Payer name Insurance type Covered alliance party ID Authorharini horta(s) [facility] [id number] Social History Type Description Quantity Date Captured Comments Sex Male Smoking Status No Information Chief Complaint And Reason For Visit No Information Reason For Referral Reason For Referral No Information History Of Present Illness Encounter Date Complaint History Of Prese nt Illness No Information Functional Status Date Functional Assessmen t No Information Instructions Date Instruction Additional Infor mation No Information Assessments Type Assessment Date No Information Patient Care Teams Name Effective Dates (start - stop) Status Members No Information
--- OUTSIDE RECORDS SUMMARY | 2024-04-17 13:44 | XMS_ITS | CONTINUITY OF CARE DOCUMENT ---
Author Name faith cuevas Address Unknown Organization [facility] Address [address] [place] [address] Phone [phone] Care Team Providers Care [employer] Dealer Name Role Phone Rosey GONZALEZ, Diony Unavailable Diony Currie MD Unavailable [phone] NADIRA ESCAMILLA MD Unavailable [phone] PROBLEMS Condition Status Date Provider Notes Valvular [...] MD neg egfr HTN essential active Diony Crurie MD did n otw watn rpm Diastolic dysfunction active iDony Currie MD Iron deficiency completed - Diony Currie MD Mitral insufficiency, mild completed - Diony Currie MD Exposure to SARS-associated coronavirus;neg igg and had vaccine active Diony Currie MD Essential tremor active Diony Currie MD Elevated LFT's completed - Diony Currie MD RA, chronic active Diony Currie MD Psoriasis active Diony Currie MD ENCOUNTERS Date Type Provider Location Encounter Diag nosis - In-person encounter Office Visit Diony Currie MD [place] [facility] Mitral insufficiency, mildElevated LFT'Keisha, chronicPsoriasis - In-person encounter Office Visit Diony Currie MD [facility] COPD - In-person encounter Office Visit Diony Currie MD [place] CAD;carotid plaquingSyncope;with bradyHTN essentialExposure to SARS-associated coronavirus;neg igg and had vaccineEssential tremor - In-person encounter Office Visit Diony Currie MD [place] Anemia;IRON AND B12 defObesityDiastolic dysfunctionMitral insufficiency, mildExposure to SARS-associated coronavirus;neg igg and had vaccine - In-person encounter Office Visit Diony Currie MD [place] Anemia;IRON AND B12 defObesitySyncope;with naz - In-person encounter Office Visit Diony Currie MD [place] SLEEP APNEA;mildDiastolic dysfunction - In-person encounter Office Visit Diony Currie MD [facility] Screening - In-person encounter Office Visit Diony Currie MD [facility] CABG;OPEN 17Anemia;IRON AND B12 defPericarditisHTN essentialIron deficiency - In-person encounter Office Visit Diony Currie MD [place] - In-person encounter Office Visit Diony Currie MD [facility] hx of Atrial fib paroxysmalDiastolic dysfunction - In-person encounter Office Visit Diony Currie MD [facility] ObesityCOPDScreeningHTN essential - In-person encounter Office Visit Diony Currie MD [facility] ObesitySyncope;with bradyCOPD - In-person encounter Office Visit Diony Currie MD [facility] CAD;carotid plaquingCABG;OPEN 17hx of Atrial fib paroxysmalHypothyroidismHyper cholesterolemia;neg crp and lpaSLEEP APNEA;mildAMI, inferior wallDepressionAnemia;IRON AND B12 def VITAL SIGNS Date Observation Value Provider Body Mass Index (Ratio) 31.32 kg/m2 Mira Currie MD blood pressure, cuff size regular [facility] blood pressure, diastolic 88 mm[Hg] Ayaan [facility] blood pressure, systolic 141 mm[Hg] Edyta [facility] pulse rate 96 /min [facility] respiratory rate E&M 12 /min [facility] oxygen saturation, oximetry 97 % [facility] weight E&M 206 [lb_av] Familia y height E&M 68 [in_i] Familia y Body Mass Index (Ratio) 30.41 kg/m2 Mira Currie MD weight E&M 200 [lb_av] Diony Waller Body Mass Index (Ratio) 31.62 kg/m2 Mira Currie MD blood pressure, diastolic 74 mm[Hg] Dionne [facility] blood pressure, systolic 125 mm[Hg] Winnie [facility] blood pressure, diastolic 74 mm[Hg] Ca therine Clayton blood pressure, systolic 125 mm[Hg] Cat herine Clayton pulse rate 66 /min Kaylie Aaron oxygen saturation, oximetry 97 % Kaylie Clayton respiratory rate E&M 14 /min Catheri ne Aaron weight E&M 208 [lb_av] Kaylie Clayton blood pressure, cuff size regular Ca therine Clayton height E&M 68 [in_i] Kaylie Clayton Body Mass Index (Ratio) 30.41 kg/m2 Mira [...] lder height E&M 68 [in_i] Roseline Castañeda [facility] Body Mass Index (Ratio) 25.85 kg/m2 Mira [...] larsen pulse rate 72 /min Roseline Castañeda [facility] weight E&M 193.6 [lb_av] Roseline murray height E&M 68 [in_i] Roseline Castañeda [facility] Body Mass Index (Ratio) 30.13 kg/m2 Mira [...] Mass Index (Ratio) 30.13 kg/m2 Je Mckeon [facility] blood pressure, cuff size regular Sh kingsley Mckeon [facility] blood pressure, diastolic 68 mm[Hg] Sh kingsley [facility]ke[facility] blood pressure, systolic 142 mm[Hg] She april Mckeon [facility] weight E&M 198.2 [lb_av] Kelsie Mckeon [facility] Body Mass Index (Ratio) 30.10 kg/m2 [facility] ta Demecs RN blood pressure, cuff size regular arlene Demecs RN blood pressure, diastolic 80 mm[Hg] arlene Demecs RN blood pressure, systolic 114 mm[Hg] [facility] sta Demecs RN oxygen saturation, oximetry 98 % [place] Demecs RN respiratory rate E&M 16 /min [place] Demecs RN pulse rate 73 /min [place] Demecs R N weight E&M 198 [lb_av] Milena Demecs R N Body Mass Index (Ratio) 30.16 kg/m2 [facility] ta Demecs RN blood pressure, cuff size regular arlene Demecs RN blood pressure, diastolic 80 mm[Hg] arlene Demecs RN blood pressure, systolic 110 mm[Hg] [facility] sta Demecs RN oxygen saturation, oximetry 98 % [place] Demecs RN respiratory rate E&M 18 /min [place] Demecs RN pulse rate 96 /min [place] Demecs R N weight E&M 198.4 [lb_av] [...] xanderyoliskristiannate pulse rate 79 /min Roseline Castañeda [facility] weight E&M 200 [lb_av] Roseline Castañeda er height E&M 68 [in_i] Roseline Castañeda [facility] Body Mass Index (Ratio) 29.86 kg/m2 Mira [...] Chichi David blood pressure, diastolic 83 mm[Hg] Al tim Hernandez blood pressure, systolic 112 mm[Hg] Kymberly jennifer David respiratory rate E&M 16 /min Cihchi David pulse rate 74 /min Chichi David [...] iron binding capacity, unsaturated 166 ug/dL [facility] [phone]/06 /08 iron binding capacity, total 235 ug/dL [facility] 250-450 Low lipoprotein, beta, serum, point, quantitative, calculated 84 mg/dL [facility] 0-99 very low density lipoproteins 28 mg/dL [facility] 5-40 HDL cholesterol, serum 31 mg/dL [facility] >39 Low triglyceride, serum, random 140 mg/dL [facility] 0-149 cholesterol, serum 143 mg/dL [facility] [phone]/06 /08 basophil count, absolute 0.1 x10E3/uL [facility] [...] Not Estab. platelet count 195 X10E3/UL [facility] [phone]/06 /08 red blood cell distribution width 14.1 [...] [facility] 3.5-5.2 sodium, serum 142 mmol/L [facility] [phone]/06 /08 urea nitrogen/creatinine ratio, serum 9 [facility] 10-24 Low eGFR if 70 mL/min/{1.73_ m2} [facility] >59 eGFR if not 61 mL/min/{1.73_ m2} [facility] >59 creatinine, serum 1.26 mg/dL [facility] 0.76-1.27 urea nitrogen, blood 11 mg/dL [facility] 8-27 blood glucose, random 90 mg/dL [facility] 65-99 ferritin, serum 846.2 ng/mL [facility] 30.0 - 400.0 High red blood cell distribution width, size density 50.4 fL [facility] - immature granulocytes, percentage of total cells, blood 0.3 % [facility] - nucleated red blood cells as percent of blood leukocytes 0.3 % [facility] - red blood cell (erythrocyte) count, per high power field 0.0 10*3/UL [facility] - eosinophils as percent of blood leukocytes 4.4 % [facility] - neutrophils as percent of blood leukocytes 62.9 % [facility] - Absolute Neutrophils 3.9 CELLS/UL [facility] 1.5 - 7.8 basophils as percent of blood leukocytes 1.6 % [facility] - Absolute Basophils 0.1 CELLS/UL [facility] 0.0 - 0.2 monocytes as percent of blood leukocytes 7.7 % [facility] - Absolute Monocytes 0.5 CELLS/UL [facility] 0.2 - 1.0 lymphocytes as percent of blood leukocytes 23.1 % [facility] - Absolute Lymphocytes 1.4 CELLS/UL [facility] 0.9 - 3.9 mean platelet volume 9.6 (?) [facility] - platelet count 253.0 THOUSAND/UL [facility] 100.0 - 400.0 mean corpuscular hemoglobin concentration, RBC 33.4 G/DL [facility] 31.0 - 38.0 mean corpuscular hemoglobin, RBC 31.1 pg [facility] 25.0 - 35.0 mean corpuscular volume, RBC 93.1 fL [facility] 75.0 - 100.0 hematocrit, blood 51.5 % [...] (low-density lipoprotein/high-de nsity lipoprotein) ratio 2.7 RATIO [facility] - lipoprotein, beta, serum, point, quantitative, calculated [...] cell distribution width, size density 49.6 fL [facility] - immature granulocytes, percentage of total cells, blood 0.4 % [facility] - nucleated red blood cells as percent of blood leukocytes 0.0 % [facility] - red blood cell (erythrocyte) count, per high power field 0.0 10*3/UL [facility] - eosinophils as percent of blood leukocytes 4.7 % [facility] - neutrophils as percent of blood leukocytes 62.3 % [facility] - Absolute Neutrophils 4.7 CELLS/UL [facility] 1.5 [...] 1 TABLET BY MOUTH EVERY DAY 05/15 [facility] rosuvastatin 40 mg tablet active TAKE 1 TABLET BY MOUTH EVERY DAY 05/15 [facility] ezetimibe 10 mg tablet completed Take 1 tablet by mouth once a day 04/21 - 05/18 Roseline Acosta cyanocobalamin (vitamin B-12) 1,000 mcg tablet active TAKE 1 TABLET BY MOUTH EVERY DAY 03/22 [facility] clopidogrel 75 mg tablet active TAKE 1 [...] MD smoking status Never smoker Tonya Baron [facility] [address] social history E&M S moking History: P [...] Angina (inactive) Management Plan continue current therapy Dinoy Currie MD HRA, CV Assess/Plan, Angina (inactive) Management Plan continue current therapy Diony Currie MD HRA, CV Assess/Plan, Angina (inactive) Management Plan continue current therapy Diony Currie MD FAMILY HISTORY Family Member Condition First Degree Blood Relative No Known Fam kyle History INSURANCE PROVIDERS Payer name Policy type / Coverage type [place] [employer] ID [facility] Other [id number] ADVANCE DIRECTIVES Name Date DISCUSSED - NO DECISION MADE TREATMENT PLAN Date Name Performer [id number],S, p ro 103 e f 55 Diony Currie MD [id number],B, H is updated medication list for this problem includes: Aspirin 81 Mg Tablet,delayed Release (dr/ec) (Aspirin) ..... Take 1 tablet by mouth every day BP today: 141/88 P rior BP: 125/74 (08/24/2021) Prior 10 Yr Risk Heart Disease: N/A (08/22/2016) Labs Reviewed: C reat: 1.23 (08/31/2021) C hol: 94 (02/26/2020) HDL: 36 (02/26/2020) Diony Currie MD [id number],S, Diony Currie MD [id number],C, Diony Currie MD [id number],S,corecte, up t o date on colon Diony Currie MD [id number],S, Diony Errol france MD [id number],S, A LL OPEN 17, IF HAS MORE SX CAN DO ECP Diony Currie MD [id number],S, m ild mr and tr and pr Diony Currie MD [id number],S, p ro 103 e f 55 Diony Currie MD [id number],S, Diony france MD [id number],S, Diony france MD [id number],B, Diony france MD [id number],B, H is updated medication list for this problem includes: Aspirin 81 Mg Tablet,delayed Release (dr/ec) (Aspirin) ..... Take 1 tablet by mouth every day BP today: 141/88 P rior BP: 125/74 (08/24/2021) Prior 10 Yr Risk Heart Disease: N/A (08/22/2016) Labs Reviewed: C reat: 1.23 (08/31/2021) C hol: 94 (02/26/2020) HDL: 36 (02/26/2020) Diony Currie MD [id number],SDiony MD [id number],S,n eg vd N EG UACR A1C AND VIT D Diony Currie MD [id number],BDiony MD [id number],S, A LL OPEN 17, IF HAS MORE SX CAN DO ECP Diony Currie MD [id number],S, A LL OPEN 17, IF HAS MORE SX CAN DO ECP Diony Currie MD [id number],B, Diony Serot a [id number],S, Diony Serot a [id number],S, Diony Serot a [id number],S, Diony Serot a [id number],S, Diony Serot a [id number],S, Diony Serot a [id number],S, Diony Serot a [id number],S, N EG UACR A1C AND VIT D Diony Currie MD [id number],S,p ro 103 e f 55 Diony Currie MD [id number],S, m ild mr and tr and pr Diony Currie MD [id number],C,ef 55 Diony Currie MD [id number],C,mild mr and t r and pr Diony Currie MD [id number],C,NEG UACR A1C AND VIT D Diony Currie MD [id number],B, H is updated medication list for this problem includes: Ezetimibe 10 Mg Tablet (Ezetimibe) ..... Take 1 tablet by mouth every day Rosuvastatin 40 Mg Tablet (Rosuvastatin) ..... Take 1 tablet by mouth every day C HOL: 94 (02/26/2020) HDL: 36 (02/26/2020) Diony Currie MD [id number],S, A LL OPEN 17, IF HAS MORE SX CAN DO ECP Diony Currie MD [id number],S,did not wnat pft Diony Currie MD [id number],B, Diony france MD [id number],B, H is updated medication list for this problem includes: Aspirin 81 Mg Tablet,delayed Release (dr/ec) (Aspirin) ..... Take 1 tablet by mouth every day BP today: 125/74 P rior BP: 140/80 (02/25/2020) Prior 10 Yr Risk Heart Disease: N/A (08/22/2016) Labs Reviewed: C reat: 1.26 (08/16/2017) C hol: 94 (02/26/2020) HDL: 36 (02/26/2020) Diony Currie MD [id number],S, Diony france MD [id number],S, n ml a1c, n ml vit d, Diony Currie MD [id number],S,no rx Diony Currie MD [id number],S,ef 45 Diony Currie MD [id number],S, Diony france MD [id number],S, Diony france MD [id number],S, Diony france MD :58 Diony Currie MD [...] Currie MD Cardiology Diony Currie MD Cardiology: n ml a1c, n ml [...] DO ECP Diony Currie MD Cardiology - [facility] karan castellano:BP improved. Continue current meds. H is updated medication list for this problem includes: Diovan 80 Mg Oral Tabs (Valsartan) ..... One a day Metoprolol Tartrate 25 Mg Oral Tabs (Metoprolol tartrate) ..... 1/2 in am Aspirin Adult Low Dose 81 Mg Oral Tbec (Aspirin) ..... One tab by mouth daily Kelsie Mckeon NP Cardiology - [facility] karan castellano:EF decreased since MA even after revascularization with CABG. Will undergo [...] FOLATE, SERUM Mobile Cardiac Tele DLCO - 30147 FRC - 90205 FVC - 98940 Complete Echo LIPID PANEL PROBNP, N TERMINAL [...] HEMOGLOBIN A1c PROBNP, N TERMINAL DLCO - 19238 FRC - 88045 FVC - 62852 COMPREHENSIVE METABO LIC PANEL W/EGFR THYROID PANEL [...] - Prof Diony Currie MD completed SNOMED-CT: 472882845 449827 Current Medications Documented Diony Currie MD completed Stress EKG Srinivasa Mckenna MD completed Regadenoson, 4 units Diony Currie MD completed Cardiolite, 2 units Diony Currie MD completed SPECT Images Srinivasa Mckenna MD complet ed SNOMED-CT: 067185349 911096 Current Medications Documented Diony Currie MD completed Holter, 24 or 48 Diony Currie MD co mpleted EKG Diony Currie MD complete d SNOMED-CT: 242424569 023064 Current Medications Documented Diony Currie MD completed FVC - 68669 Diony Currie MD complet ed FRC - 54671 Diony Currie MD complet ed DLCO - 81178 Diony Currie MD comple tone SNOMED-CT: 396285927 693565 Current Medications Documented Diony Currie MD completed SNOMED-CT: 187510343 729625 Current Medications Documented Diony Currie MD completed
[2024-04-17 13:51] VITALS: BP 132/82; PULSE 96; RESP 18; TEMP 36.4; O2SAT 98
--- NOTE | 2024-04-17 15:49 | ED_ITS ---
HPI - Back Pain/Injury General Chief Complaint: Back Pain/Injury <Ellie Ordonez PA-C - Last Filed: 04/17/24 15:50> Stated Complaint: fall- back pain <Ellie Ordonez PA-C - Last Filed: 04/17/24 15:50> Time Seen by Provider: 04/17/24 17:01 <Ellie Ordonez PA-C - Last Filed: 04/17/24 15:50> Focused HPI: 68-year-old male presents emergency department for neck and back pain. Patient states he has chronic neck and back pain but had a mechanical fall around March 30 which has exacerbated his pain. States he was walking and slipped on ice, fell backward on his back and his head but did not lose consciousness. He is reporting pain diffusely throughout his back, describes it as a muscle spasm. States he took [id number] pain reliever without improvement. Denies saddle anesthesia, bowel or bladder incontinence, urinary retention. GENERAL: Well-appearing, well-nourished, and in no acute distress. HEAD: Normocephalic, atraumatic. CHEST: Clear to auscultation. ?No respiratory distress. BACK: Tenderness palpation diffusely over the cervical, thoracic lumbar spine without crepitus, step-offs or deformities. HEART: Regular rate and rhythm.? NEURO: ?Alert and oriented x3. Patient screened in triage and initial orders placed.? ?Additional care and disposition to be based upon?diagnostic testing and treatment. <Ellie Ordonez PA-C - Last Filed: 04/17/24 15:50> Focused HPI: 68-year-old male presents emergency department for neck and back pain. Patient states he has chronic neck and back pain but had a mechanical fall around March 30 which has exacerbated his pain. States he was walking and slipped on ice, fell backward on his back and hit his head but did not lose consciousness. He is reporting pain diffusely throughout his back, describes it as a muscle spasm. States he took [id number] pain reliever without improvement. Denies saddle anesthesia, bowel or bladder incontinence, urinary retention. GENERAL: Well-appearing, well-nourished, and in no acute distress. HEAD: Normocephalic, atraumatic. CHEST: Clear to auscultation. ?No respiratory distress. BACK: Tenderness palpation diffusely over the cervical, thoracic lumbar spine without crepitus, step-offs or deformities. HEART: Regular rate and rhythm.? NEURO: ?Alert and oriented x3. Patient screened in triage and initial orders placed.? ?Additional care and disposition to be based upon?diagnostic testing and treatment. <Beth Morrell PA-C - Last Filed: 04/17/24 18:00> Related Data Home Medications: Home Medications ?Medication ?Instructions ?Recorded ?Confirmed ?Last Taken ?Type clopidogrel 75 mg tablet 75 mg PO DAILY 10/09/21 03/31/24 04/03/22 History ezetimibe 10 mg tablet 10 mg PO DAILY 10/09/21 03/31/24 04/13/22 History rosuvastatin 40 mg tablet 40 mg PO DAILY 10/09/21 03/31/24 04/12/22 History tamsulosin 0.4 mg capsule 0.4 mg PO HS 04/06/22 03/31/24 04/12/22 History folic acid 1 mg tablet 1 mg PO DAILY 12/17/23 03/31/24 Unknown History methotrexate sodium 2.5 mg tablet 2.5 mg PO .COMPLEX 12/17/23 03/31/24 Unknown History triamcinolone acetonide 0.025 % 1 applic topical BID 12/17/23 03/31/24 Unknown History topical cream <Ellie Ordonez PA-C - Last Filed: 04/17/24 15:50> Allergies/Adverse Reactions: Allergies Allergy/AdvReac Type Severity Reaction Status Date / Time povidone-iodine (From AdvReac Intermediate Rash Verified 04/17/24 16:25 Betadine) <Ellie Ordonez PA-C - Last Filed: 04/17/24 15:50> Review of Systems Review of Systems: CONSTITUTIONAL: Denies fever GASTROINTESTINAL: Denies vomiting MUSCULOSKELETAL: Reports back pain, joint pain, and myalgia. NEUROLOGIC: Denies numbness, or weakness. <Beth Morrell PA-C - Last Filed: 04/17/24 18:00> All systems reviewed & are unremarkable except as noted in HPI and below <Beth Morrell PA-C - Last Filed: 04/17/24 18:00> [facility] Past Medical History Medical History: Medical History (Updated 04/17/24 @ 17:56 by Beth Morrell PA-C) Encounter to establish care Tailor's bunion of left foot LISETH (obstructive sleep apnea) Prostate CA CAD (coronary artery disease) Obesity <Ellie Ordonez PA-C - Last Filed: 04/17/24 15:50> Surgical History Surgical History: Surgical History History of coronary artery stent placement <Ellie Ordonez PA-C - Last Filed: 04/17/24 15:50> Family History Family History: Family History Mother No problems noted. Sibling Alcoholism Grandparent Asthma <Ellie Ordonez PA-C - Last Filed: 04/17/24 15:50> Social History Social History: Social History Smoking status: Never smoker Second hand tobacco smoke exposure: No Alcohol intake: current Alcohol use details: STATES MAYBE 12 BEERS/6 MONTHS Substance use: never Substance use type: does not use Living arrangements: alone Spiritual care concerns: No <Ellie Ordonez PA-C - Last Filed: 04/17/24 15:50> Exam Narrative: GENERAL: Well-appearing, well-nourished, and in no acute distress. HEAD: Normocephalic, atraumatic. EYES: PERRLA and EOMI. ENT: Nares clear, no rhinorrhea or epistaxis. Mucous membranes moist. Oropharynx without tonsillar hypertrophy exudate or other lesions. Bilateral TMs pearly balbuena non-bulging NECK: Supple. No adenopathy or masses. CHEST: Clear to auscultation. No respiratory distress. No wheezes rales or rhonchi HEART: Regular rate and rhythm. No murmur heard. Normal peripheral pulses. EXTREMITIES: Normal range of motion. No edema or obvious deformity. Strength equal in bilateral upper and lower extremities (5/5) SKIN: Warm, dry, no rash. NEURO: No focal deficits. Alert and oriented x3. Cranial nerves 2-12 grossly intact PSYCH: Normal mood and affect <Beth Morrell PA-C - Last Filed: 04/17/24 18:00> Course Course Emergency Course: Patient updated on his workup and agrees with plan of care <Beth Morrell PA-C - Last Filed: 04/17/24 18:00> Vital Signs Vital signs: Vital Signs Temperature 97.6 F 04/17/24 13:51 Pulse Rate 96 04/17/24 13:51 Respiratory Rate 18 04/17/24 13:51 Blood Pressure 132/82 04/17/24 13:51 Pulse Oximetry 98 04/17/24 13:51 Oxygen Delivery Room Air 04/17/24 13:51 Temperature 97.6 F 04/17/24 13:51 Pulse Rate 78 04/17/24 17:35 Respiratory Rate 15 04/17/24 17:35 Blood Pressure 140/78 04/17/24 17:35 Pulse Oximetry 98 04/17/24 17:35 Oxygen Delivery Room Air 04/17/24 13:51 <Ellie Ordonez PA-C - Last Filed: 04/17/24 15:50> Vital Signs Temperature 97.6 F 04/17/24 13:51 Pulse Rate 96 04/17/24 13:51 Respiratory Rate 18 04/17/24 13:51 Blood Pressure 132/82 04/17/24 13:51 Pulse Oximetry 98 04/17/24 13:51 Oxygen Delivery Room Air 04/17/24 13:51 Temperature 97.6 F 04/17/24 13:51 Pulse Rate 78 04/17/24 17:35 Respiratory Rate 15 04/17/24 17:35 Blood Pressure 140/78 04/17/24 17:35 Pulse Oximetry 98 04/17/24 17:35 Oxygen Delivery Room Air 04/17/24 13:51 <DAO Ortega Last Filed: 04/17/24 18:00> MDM - Back Pain/Injury MDM Narrative Medical decision making narrative: Patient presents to the emergency department after a fall couple of weeks prior to arrival with ongoing neck pain, back pain. Reporting a head injury. He is neurologically intact. His vitals are stable. CT brain without acute findings. CT cervical, thoracic, and lumbar spine also without acute abnor malities. Patient was updated on his workup and agrees with plan of care. He is to follow up with primary provider. He was given warnings to return to the ER <Beth Morrell PA-C - Last Filed: 04/17/24 18:00> Differential Diagnosis Differential diagnosis: Likely lumbar radiculopathy, strain of lumbar region and other (Compression fracture, concussion, subdural hematoma) <Beth Morrell PA-C - Last Filed: 04/17/24 18:00> Imaging Data Radiologist's impression: ITS Impressions Head CT 04/17/24 16:19 IMPRESSION: 1. Normal aging brain. 2. Chronic sinusitis. Thoracic/Lumbar Spine CT 04/17/24 16:22 IMPRESSION: 1. No fracture. 2. Mild thoracic and lumbar spondylosis. 3. DISH. 4. Posterior fusion procedure from L4 to S1. Cervical Spine CT 04/17/24 16:23 IMPRESSION: 1. Mild cervical spondylosis with anterior fusion at C5-C7. No acute osseous abnormality. <Beth Morrell PA-C - Last Filed: 04/17/24 18:00> Critical Care Time Critical Care Time Critical Care Time: No <DAO Ortega Last Filed: 04/17/24 18:00> Discharge Plan Discharge Clinical Impression: Fall, Back pain, Head injury <Ellie Ordonez PA-C - Last Filed: 04/17/24 15:50> Patient Disposition: Home, Self-Care <DAO Albright Last Filed: 04/17/24 15:50> Condition: Stable <DAO Albright Last Filed: 04/17/24 15:50> Instructions: Head Injury (ED), Back Pain (ED) <DAO Albright Last Filed: 04/17/24 15:50> Additional Instructions: Return to the ER if you experience weakness, numbness, bowel/bladder incontinence, or any other symptoms that are concerning to you Rest, use ice/heat, take anti-inflammatories (Aleve, Ibuprofen, Naproxen, etc) or Tylenol as needed for pain as well as muscle relaxer (Flexeril) as needed for pain. Muscle relaxers can make you drowsy, do not drive if you take this Follow up with your primary care doctor <Ellie Ordonez PA-C - Last Filed: 04/17/24 15:50> Patient Language: Ukrainian <Ellie Ordonez PA-C - Last Filed: 04/17/24 15:50> Prescriptions: New cyclobenzaprine 10 mg tablet 10 mg PO TID PRN (Reason: muscle spasm) Qty: 14 0RF No Action clopidogrel 75 mg tablet 75 mg PO DAILY ezetimibe 10 mg tablet 10 mg PO DAILY rosuvastatin 40 mg tablet 40 mg PO DAILY methotrexate sodium 2.5 mg tablet 2.5 mg PO .COMPLEX Rx Instructions: 2.5 mg orally 2 tablets twice daily only on M and F; triamcinolone acetonide 0.025 % cream 1 applic topical BID folic acid 1 mg tablet 1 mg PO DAILY aspirin 81 mg tablet,delayed release (DR/EC) 81 mg PO DAILY Qty: 90 1RF duloxetine 60 mg capsule,delayed release(DR/EC) See Rx Instructions .ROUTE .COMPLEX Qty: 180 1RF Dose Instruction: TAKE 1 CAPSULE BY MOUTH TWICE A DAY FOR 90 DAYS Rx Instructions: TAKE 1 CAPSULE BY MOUTH TWICE A DAY FOR 90 DAYS gabapentin 100 mg capsule 100 mg PO TID 90 Days Qty: 270 1RF hydroxychloroquine 200 mg tablet 200 mg PO DAILY Qty: 90 1RF tamsulosin 0.4 mg capsule 0.4 mg PO HS amitriptyline 100 mg tablet 100 mg PO DAILY Qty: 90 1RF levothyroxine 150 mcg tablet 150 mcg PO DAILY Qty: 90 1RF omeprazole 40 mg capsule,delayed release(DR/EC) 40 mg PO DAILY Qty: 90 0RF <Ellie Ordonez PA-C - Last Filed: 04/17/24 15:50> Follow-up/Referrals: Krystyna Booker APRN [Primary Care Provider] - <Ellie Ordonez PA-C - Last Filed: 04/17/24 15:50>
[2024-04-17] MEDS: CYCLOBENZAPRINE HCL 10 MG TABLET PO (16:16)
[2024-04-17] MEDS: ACETAMINOPHEN 500 MG TABLET 1000 MG PO (16:16)
[2024-04-17] MEDS: LIDOCAINE 5% PATCH 1 PATCH TRANSDERM (16:17)
[2024-04-17 16:24] VITALS: BP 135/90; PULSE 85; RESP 16; O2SAT 100
[2024-04-17 17:35] VITALS: BP 140/78; PULSE 78; RESP 15; O2SAT 98
--- OUTSIDE RECORDS SUMMARY | 2024-04-17 17:42 | XMS_ITS | Encounter Summary ---
Author Organization [facility] Address [address] [place] [address] Care Team Providers Care Equipment Validation Specialist Name Role Phone Marquez Torres MD Primary Care Provider [phone] Reason for Visit * Reason Comments Question Encounter Details Date Type Department Care Team (Late st Contact Info) Description 10/10/2023 Telephone [facility] [address] [place] [address] [place] [address] [facility] [address] [address] Question Social History Tobacco Use Types Packs/Day Years Used Date Smoking Tobacco: Never Assessed Feeling Safe Answer Date Recorded Are you in a relationship wi th someone who hurts you emotionally and/or physically? 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 * Telephone Encounter - Stacy Lui - 10/10/2023 2:54 PM CDT Copied from [facility] #[id number]. Topic: CPA Information Request - Insurance/Estimate >> Oct 10, 2023 2:46 PM Stacy Escobedo wrote: Caller Name: Mihai Wolff Callback Number: [phone] (home) Call Notes: [employer] said that [...] on filedocumented in this encounter Care Teams Equipment Validation Specialist Relationship Specialty Start Date End Date Marquez Torres MD PCP - General Family Practice 03/28/23 documented as of this encounter
--- OUTSIDE RECORDS SUMMARY | 2024-04-17 17:42 | XMS_ITS | Continuity of Care Document ---
Author Organization [facility] Address [address] [place] [id number] Phone Care Team Providers Care Instructional Technology Coach Name Role Phone Maciel Reeves DO Unavailable [...] Provider Providers Copied on Encounter [facility], [address] [place] [address], [id number], tel:[phone] [facility] left fourth finger (chief complaint) Encounter for other orthopedic aftercare [address] [place] [address], [place], [place], [id number] , [place]. tel:[phone] Referring Provider: Maciel Waller, [address], [place], [address] . tel:[phone] [facility], [address] [place] [address], [id number], [place] tel:[phone] [facility] No Information [address] [place] [address], [facility] [address], [place], [place], [id number] , [place]. tel:[phone] Referring Provider: Maciel Waller, [address] [facility] [address], [place], [address] . tel:[phone] Family History Family Member Type Diagnosis Age At Onset Father Problem (finding) Heart Disease Immunizations Vaccine Date Status Comments Pneumo (2 yrs or older) (PPV23) administe red Source: Other Provider Pneumo (2 yrs or older)(PPV) administered Source: Other Provider Payers Payer name Insurance type Covered democrat ID Vishal horta(s) [facility] [id number] Social History Type Description Quantity Date Captured [...]
--- OUTSIDE RECORDS SUMMARY | 2024-04-17 17:42 | XMS_ITS | Continuity of Care Document ---
Author Organization [facility] Address [address] [place] [address] Phone Care Team Providers Care Payment Rep Name Role Phone Law Dwyer MD Unavailable [...] Diagnoses Date Provider Providers Copied on Encounter [facility], [address], [place], [place], [id number], tel:[phone] [facility] No Information Reymundo Foy. [address] [facility], [facility] [address], [place], [id number]. tel:[phone] Referring Provider: Huber Garcia, [address] [place], [address]. tel:[phone] [facility], [address], [place], [place], [id number], tel:[phone] [place] No Information Zo Barbosa. [address], [place], [address], [place]. tel:[phone] [facility], [address], [place], [place], [id number], tel:[phone] [place] AC SUPP OTITIS MEDIA NOSACTINIC KERATOSIS Zo Barbosa. [address], [place], [place], [facility], . tel:[phone] [facility], [address], [place], [place], [address] [place] [address], tel:[phone] [place] DEPRESSIVE DISORDER NEC Zo Estevez. [address], [place], [place], [address] [place] [address], . tel:[phone] [facility], [address], [place], [place], [address] [place] [address], tel:[phone] [place] No Information Zo Familia. [address], [place], [place], [facility], . tel:[phone] [facility], [address], [place], [place], [address] [place] [address], tel:[phone] [place] JOINT PAIN-PELVISSC IATICA Elder Zayas. [address], [place], [place], [address] [place] [address], . tel:[phone] [facility], [address], [place], [place], [address] [place] [address], tel:[phone] [place] DISORDER OF PENIS NECINSOMNIA NOS Zo Estevez. [address], [place], [place], [address] [place] [address], . tel:[phone] [facility], [address], [place], [address] [place] [address], tel:[phone] [place] JOINT PAIN-SHLDER Zo Estevez. [facility], [place], [place], [address] [place] [address], . tel:[phone] Family History Family Member Type Diagnosis Age At Onset No Information Payers Payer name Insurance type Covered libertarian ID Authorharini horta(s) [facility] [id number] Social History Type Description Quantity Date Captured [...]
--- OUTSIDE RECORDS SUMMARY | 2024-04-17 17:42 | XMS_ITS | CONTINUITY OF CARE DOCUMENT ---
Author Name faith cuevas Address Unknown Organization [facility] Address [address] [address] [facility] [address] [place] [address] Phone [phone] Care Team Providers Care Packing Machine Operator Name Role Phone Rosey GONZALEZ, Diony Unavailable Diony Currie MD Unavailable NADIRA ESCAMILLA MD Unavailable [phone] PROBLEMS Condition Status Date Provider Notes Valvular [...] In-person encounter Office Visit Diony Currie MD [facility] Mitral insufficiency, mildElevated LFT'Keisha, chronicPsoriasis - In-person encounter Office Visit Diony Currie MD [facility] COPD - In-person encounter Office Visit Diony Currie MD [facility] CAD;carotid plaquingSyncope;with bradyHTN essentialExposure to SARS-associated coronavirus;neg igg and had vaccineEssential tremor - In-person encounter Office Visit Diony Currie MD [facility] Anemia;IRON AND B12 defObesityDiastolic dysfunctionMitral insufficiency, mildExposure to SARS-associated coronavirus;neg igg and had vaccine - In-person encounter Office Visit Diony Currie MD [facility] Anemia;IRON AND B12 defObesitySyncope;with naz - In-person encounter Office Visit Diony Currie MD [facility] SLEEP APNEA;mildDiastolic dysfunction - In-person encounter Office Visit Diony Currie MD [facility] Screening - In-person encounter Office Visit Diony Currie MD [facility] CABG;OPEN 17Anemia;IRON AND B12 defPericarditisHTN essentialIron deficiency - In-person encounter Office Visit Diony Currie MD [facility] - In-person encounter Office Visit Diony Currie MD [facility] hx of Atrial fib paroxysmalDiastolic dysfunction - In-person encounter Office Visit Diony Currie MD [facility] ObesityCOPDScreeningHTN essential - In-person encounter Office Visit Diony Currie MD [facility] ObesitySyncope;with bradyCOPD - In-person encounter Office Visit Diony Currie MD [facility] CAD;carotid plaquingCABG;OPEN 17hx of Atrial fib paroxysmalHypothyroidismHyper cholesterolemia;neg crp and lpaSLEEP APNEA;mildAMI, inferior wallDepressionAnemia;IRON AND B12 def VITAL SIGNS Date Observation Value Provider Body Mass Index (Ratio) 31.32 kg/m2 Mira Currie MD blood pressure, cuff size regular [facility] blood pressure, diastolic 88 mm[Hg] Ayaan [facility] blood pressure, systolic 141 mm[Hg] Edyta [facility] pulse rate 96 /min [facility] respiratory rate E&M 12 /min [facility] oxygen saturation, oximetry 97 % [facility] weight E&M 206 [lb_av] Familia y height E&M 68 [in_i] Familia y Body Mass Index (Ratio) 30.41 kg/m2 Mira Currie MD weight E&M 200 [lb_av] Diony Waller Body Mass Index (Ratio) 31.62 kg/m2 Mira Currie MD blood pressure, diastolic 74 mm[Hg] Dionne [facility]kLogic blood pressure, systolic 125 mm[Hg] Winnie kLogic blood pressure, diastolic 74 mm[Hg] Ca therine Sherburn blood pressure, systolic 125 mm[Hg] Cat herine Sherburn pulse rate 66 /min Kaylie Aaron oxygen saturation, oximetry 97 % Kaylie Sherburn respiratory rate E&M 14 /min Catheri ne Aaron weight E&M 208 [lb_av] Kaylie Sherburn blood pressure, cuff size regular Ca therine Sherburn height E&M 68 [in_i] Kaylie Sherburn Body Mass Index (Ratio) 30.41 kg/m2 Mira Currie MD blood pressure, cuff size large Ke rri Gruenenfelder blood pressure, diastolic 80 mm[Hg] Ke rri Gruenenfelder blood pressure, systolic 140 mm[Hg] Stevenson Aocsta oxygen saturation, oximetry 98 % Roseline Acosta respiratory rate E&M 16 /min Roseline drakeelder pulse rate 90 /min Roseline Castañeda ld weight E&M 200 [lb_av] Roseline Garry lder height E&M 68 [in_i] Roseline Castañeda [facility] Body Mass Index (Ratio) 25.85 kg/m2 Mira [...] larsen pulse rate 72 /min Roseline Castañeda [facility] weight E&M 193.6 [lb_av] Roseline murray height E&M 68 [in_i] Roseline Castañeda [facility] Body Mass Index (Ratio) 30.13 kg/m2 Mira [...] Mass Index (Ratio) 30.13 kg/m2 Je Mckeon [employer] blood pressure, cuff size regular Sh kingsley Mckeon [employer] blood pressure, diastolic 68 mm[Hg] Sh kingsley Mckeon [employer] blood pressure, systolic 142 mm[Hg] She april Mckeon [employer] weight E&M 198.2 [lb_av] Kelsie Mckeon [employer] Body Mass Index (Ratio) 30.10 kg/m2 [facility] ta Demecs RN blood pressure, cuff size regular arlene Demecs RN blood pressure, diastolic 80 mm[Hg] arlene Demecs RN blood pressure, systolic 114 mm[Hg] [facility] sta Demecs RN oxygen saturation, oximetry 98 % Amite Demecs RN respiratory rate E&M 16 /min Amite Demecs RN pulse rate 73 /min Amite Demecs R N weight E&M 198 [lb_av] Milena Demecs R N Body Mass Index (Ratio) 30.16 kg/m2 [facility] ta Demecs RN blood pressure, cuff size regular arlene Demecs RN blood pressure, diastolic 80 mm[Hg] arlene Demecs RN blood pressure, systolic 110 mm[Hg] [facility] sta Demecs RN oxygen saturation, oximetry 98 % Amite Demecs RN respiratory rate E&M 18 /min Amite Demecs RN pulse rate 96 /min Amite Demecs R N weight E&M 198.4 [lb_av] [...] xanderyoliskristiannate pulse rate 79 /min Roseline Castañeda [facility] weight E&M 200 [lb_av] Roseline Castañeda er height E&M 68 [in_i] Roseline Castañeda [facility] Body Mass Index (Ratio) 29.86 kg/m2 Mira [...] Chichi David blood pressure, diastolic 83 mm[Hg] Ma tim Hernandez blood pressure, systolic 112 mm[Hg] [...] iron binding capacity, unsaturated 166 ug/dL [facility] 144-586 9028/06 /08 iron binding capacity, total 235 ug/dL [facility] 250-450 Low lipoprotein, beta, serum, point, quantitative, calculated 84 mg/dL [facility] 0-99 very low density lipoproteins 28 mg/dL [facility] 5-40 HDL cholesterol, serum 31 mg/dL [facility] >39 Low triglyceride, serum, random 140 mg/dL [facility] 0-149 cholesterol, serum 143 mg/dL [facility] 624-798 0359/06 /08 basophil count, absolute 0.1 x10E3/uL [facility] [...] Not Estab. platelet count 195 X10E3/UL [facility] 208-470 8268/06 /08 red blood cell distribution width 14.1 [...] [facility] 3.5-5.2 sodium, serum 142 mmol/L [facility] 291-682 6484/06 /08 urea nitrogen/creatinine ratio, serum 9 [facility] 10-24 Low eGFR if 70 mL/min/{1.73_ m2} [facility] >59 eGFR if not 61 mL/min/{1.73_ m2} [facility] >59 creatinine, serum 1.26 mg/dL [facility] 0.76-1.27 urea nitrogen, blood 11 mg/dL [facility] 8-27 blood glucose, random 90 mg/dL [facility] 65-99 ferritin, serum 846.2 ng/mL [facility] 30.0 - 400.0 High red blood cell distribution width, size density 50.4 fL [facility] - immature granulocytes, percentage of total cells, blood 0.3 % [facility] - nucleated red blood cells as percent of blood leukocytes 0.3 % [facility] - red blood cell (erythrocyte) count, per high power field 0.0 10*3/UL [facility] - eosinophils as percent of blood leukocytes 4.4 % [facility] - neutrophils as percent of blood leukocytes 62.9 % [facility] - Absolute Neutrophils 3.9 CELLS/UL [facility] 1.5 - 7.8 basophils as percent of blood leukocytes 1.6 % [facility] - Absolute Basophils 0.1 CELLS/UL [facility] 0.0 - 0.2 monocytes as percent of blood leukocytes 7.7 % [facility] - Absolute Monocytes 0.5 CELLS/UL [facility] 0.2 - 1.0 lymphocytes as percent of blood leukocytes 23.1 % [facility] - Absolute Lymphocytes 1.4 CELLS/UL [facility] 0.9 - 3.9 mean platelet volume 9.6 (?) [facility] - platelet count 253.0 THOUSAND/UL [facility] 100.0 - 400.0 mean corpuscular hemoglobin concentration, RBC 33.4 G/DL [facility] 31.0 - 38.0 mean corpuscular hemoglobin, RBC 31.1 pg [facility] 25.0 - 35.0 mean corpuscular volume, RBC 93.1 [facility] - 100.0 hematocrit, blood 51.5 [...] (low-density lipoprotein/high-de nsity lipoprotein) ratio 2.7 RATIO [facility] - lipoprotein, beta, serum, point, quantitative, calculated [...] cell distribution width, size density 49.6 fL [facility] - immature granulocytes, percentage of total cells, blood 0.4 % [facility] - nucleated red blood cells as percent of blood leukocytes 0.0 % [facility] - red blood cell (erythrocyte) count, per high power field 0.0 10*3/UL [facility] - eosinophils as percent of blood leukocytes 4.7 % [facility] - neutrophils as percent of blood leukocytes 62.3 % [facility] - Absolute Neutrophils 4.7 CELLS/UL LinkLog 1.5 [...] 1 TABLET BY MOUTH EVERY DAY 05/15 [facility] rosuvastatin 40 mg tablet active TAKE 1 TABLET BY MOUTH EVERY DAY 05/15 [facility] ezetimibe 10 mg tablet completed Take 1 tablet by mouth once a day 04/21 - 05/18 Roseline Acosta cyanocobalamin (vitamin B-12) 1,000 mcg tablet active TAKE 1 TABLET BY MOUTH EVERY DAY 03/22 [facility] clopidogrel 75 mg tablet active TAKE [...] MD smoking status Never smoker Tonya Baron [facility] social history E&M S moking History: [...] Payer name Policy type / Coverage type [place] red democrat ID [facility] Other [id number] ADVANCE DIRECTIVES Name Date DISCUSSED - NO DECISION MADE TREATMENT PLAN Date Name Performer [id number],S, p ro 103 e f 55 Diony Currie MD [id number],B, H is updated medication list for this problem includes: Aspirin 81 Mg Tablet,delayed Release (dr/ec) (Aspirin) ..... Take 1 tablet by mouth every day BP today: 141/88 P rior BP: 125/74 (08/24/2021) Prior 10 Yr Risk Heart Disease: N/A (08/22/2016) Labs Reviewed: C reat: 1.23 (08/31/2021) C hol: 94 (02/26/2020) HDL: 36 (02/26/2020) Diony Currie MD [id number],S, Diony Currie MD [id number],C, Diony Currie MD [id number],S,corecte, up t o date on colon Diony Currie MD [id number],S, Diony Errol france MD [id number],S, A LL OPEN 17, IF HAS MORE SX CAN DO ECP Diony Currie MD [id number],S, m ild mr and tr and pr Diony Currie MD [id number],S, p ro 103 e f 55 Diony Currie MD [id number],S, Diony france MD [id number],S, Diony france MD [id number],B, Diony france MD [id number],B, H is updated medication list for this problem includes: Aspirin 81 Mg Tablet,delayed Release (dr/ec) (Aspirin) ..... Take 1 tablet by mouth every day BP today: 141/88 P rior BP: 125/74 (08/24/2021) Prior 10 Yr Risk Heart Disease: N/A (08/22/2016) Labs Reviewed: C reat: 1.23 (08/31/2021) C hol: 94 (02/26/2020) HDL: 36 (02/26/2020) Diony Currie MD [id number],SDiony MD [id number],S,n eg vd N EG UACR A1C AND VIT D Diony Currie MD [id number],BDiony MD [id number],S, A LL OPEN 17, IF HAS MORE SX CAN DO ECP Diony Currie MD [id number],S, A LL OPEN 17, IF HAS MORE SX CAN DO ECP Diony Currie MD [id number],B, Diony Serot a [id number],S, Diony Serot a [id number],S, Diony Serot a [id number],S, Diony Serot a [id number],S, Diony Serot a [id number],S, Diony Serot a [id number],S, Diony Serot a [id number],S, N EG UACR A1C AND VIT D Diony Currie MD [id number],S,p ro 103 e f 55 Diony Currie MD [id number],S, m ild mr and tr and pr Diony Currie MD [id number],C,ef 55 Diony Currie MD [id number],C,mild mr and t r and pr Diony Currie MD [id number],C,NEG UACR A1C AND VIT D Diony Currie MD [id number],B, H is updated medication list for this problem includes: Ezetimibe 10 Mg Tablet (Ezetimibe) ..... Take 1 tablet by mouth every day Rosuvastatin 40 Mg Tablet (Rosuvastatin) ..... Take 1 tablet by mouth every day C HOL: 94 (02/26/2020) HDL: 36 (02/26/2020) Diony Currie MD [id number],S, A LL OPEN 17, IF HAS MORE SX CAN DO ECP Diony Currie MD [id number],S,did not wnat pft Diony Currie MD [id number],B, Diony france MD [id number],B, H is updated medication list for this problem includes: Aspirin 81 Mg Tablet,delayed Release (dr/ec) (Aspirin) ..... Take 1 tablet by mouth every day BP today: 125/74 P rior BP: 140/80 (02/25/2020) Prior 10 Yr Risk Heart Disease: N/A (08/22/2016) Labs Reviewed: C reat: 1.26 (08/16/2017) C hol: 94 (02/26/2020) HDL: 36 (02/26/2020) Diony Currie MD [id number],S, Diony france MD [id number],S, n ml a1c, n ml vit d, Diony Currie MD [id number],S,no rx Diony Currie MD [id number],S,ef 45 Diony Currie MD [id number],S, Diony france MD [id number],S, Diony france MD [id number],S, Diony france MD :58 Diony Currie MD [...] not like adiepx o r topama Diony Curire MD Cardiology;ecjp[oemd f: U PT TODATE ON [...] DO ECP Diony Currie MD Cardiology - ELECT[employer] karan castellano:BP improved. Continue current meds. H is updated medication list for this problem includes: Diovan 80 Mg Oral Tabs (Valsartan) ..... One a day Metoprolol Tartrate 25 Mg Oral Tabs (Metoprolol tartrate) ..... 1/2 in am Aspirin Adult Low Dose 81 Mg Oral Tbec (Aspirin) ..... One tab by mouth daily Kelsie Mckeon NP Cardiology - [employer]LECT[employer] karan castellano:EF decreased since PA even after revascularization with CABG. Will undergo nuclear stress test. H is updated medication list for this problem includes: Diovan 80 Mg Oral Tabs (Valsartan) ..... One a day Metoprolol Tartrate 25 Mg Oral Tabs (Metoprolol tartrate) ..... 1/2 in am Aspirin Adult Low Dose 81 Mg Oral Tbec (Aspirin) ..... One tab by mouth daily Kelsei Mckeon NP Cardiology Follow up :nml a1c [...] Cardiology: n eeds fu home study Diony Curire MD Cardiology:nml ef 2015 n ml pro [...] FOLATE, SERUM Mobile Cardiac Tele DLCO - 68732 FRC - 13915 FVC - 75495 Complete Echo LIPID PANEL PROBNP, N TERMINAL [...] HEMOGLOBIN A1c PROBNP, N TERMINAL DLCO - 68026 FRC - 47196 FVC - 93387 COMPREHENSIVE METABO LIC PANEL W/EGFR THYROID PANEL [...] - Prof Diony Currie MD completed SNOMED-CT: 200154098 306846 Current Medications Documented Diony Currie MD completed Stress EKG Srinivasa Mckenna MD completed Regadenoson, 4 units Diony Currie MD completed Cardiolite, 2 units Diony Currie MD completed SPECT Images Srinivasa Mckenna MD complet ed SNOMED-CT: 491937242 916376 Current Medications Documented Diony Currie MD completed Holter, 24 or 48 Diony Currie MD co mpleted EKG Diony Currie MD complete d SNOMED-CT: 959587495 698540 Current Medications Documented Diony Currie MD completed FVC - 83544 Diony Currie MD complet ed FRC - 39565 Diony Currei MD complet ed DLCO - 44466 Diony Currie MD comple tone SNOMED-CT: 854965937 335803 Current Medications Documented Diony Currie MD completed SNOMED-CT: 772201160 782416 Current Medications Documented Diony Currie MD completed
--- OUTSIDE RECORDS SUMMARY | 2024-04-17 17:42 | XMS_ITS | Encounter Summary ---
Author Organization [facility] Address [address] [place] [address] Care Team Providers Care Supply Chain Manager Name Role Phone Marquez Torres MD Primary Care Provider [phone] Reason for Visit * Reason Comments Lab Results Encounter Details Date Type Department Care Team (Late st Contact Info) Description 10/08/2023 Telephone [facility] Care [facility] [address] [place] [address] [place] [address] [facility] [address] [place] [address] Lab Results Social History Tobacco Use Types Packs/Day Years Used Date Smoking Tobacco: Never Assessed Feeling Safe Answer Date Recorded Are you in a relationship wi th someone who hurts you emotionally and/or physically? 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 Torres * Telephone Encounter - Brenda Cole - 10/08/2023 11:12 AM CDT Copied from [facility] #[id number]. Topic: Patient or Caregiver Communication Request >> Oct 08, 2023 11:09 AM Brenda Corral wrote: Patient or Caregiver insisting that a message be sent to Care Team Caller: Mihai Wolff Patient/Caregiver Callback Number: [phone] Call Notes: Pt is calling in regards of being scheduled with . Pt states he had an appointment with yesterday on 10/06, yet he moved locations. Requesting call back with further information. documented in this encounter Plan of Treatment Not on file documented as of this encounter Visit Diagnoses Not on filedocumented in this encounter Care Teams Supply Chain Manager Relationship Specialty Start Date End Date Marquez Torres MD PCP - General Family Practice 03/28/23 documented as of this encounter
--- OUTSIDE RECORDS SUMMARY | 2024-04-17 17:42 | XMS_ITS | Clinical Summary ---
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 Gender Identity Not on file Sexual Orientation Not on file Last Filed Vital Signs Vital Sign Reading Time Taken Comments Blood Pressure 134/71 03/28/2023 7:46 PM AIRCRAFT INSTRUMENT MECHANIC Pulse 92 03/28/2023 7:46 PM AIRCRAFT INSTRUMENT MECHANIC Temperature 37.3 C (99.1 F) 03/28/2023 5:45 PM AIRCRAFT INSTRUMENT MECHANIC Respiratory Rate 15 03/28/2023 7:46 PM AIRCRAFT INSTRUMENT MECHANIC Oxygen Saturation 96% 03/28/2023 7:46 PM AIRCRAFT INSTRUMENT MECHANIC Inhaled Oxygen Concentration - - Weight 93 kg (205 lb) 03/28/2023 5:45 PM AIRCRAFT INSTRUMENT MECHANIC Height 172.7 cm (5' 8 ) 03/28/2023 5:45 PM AIRCRAFT INSTRUMENT MECHANIC Body Mass Index 31.17 03/28/2023 5:45 PM AIRCRAFT INSTRUMENT MECHANIC Plan of Treatment Health Maintenance Due Date [...] 1-dose 75+ series) 2030 Insurance Care Teams Upholstery Bundler Relationship Specialty Start Date End Date Marquez Torres MD PCP - General Family Practice 03/28/23
[2024-04-17] MEDS: ONDANSETRON HCL ODT 4 MG TABLET PO (17:59)
[2024-04-17 18:07] VITALS: BP 143/83; PULSE 79; RESP 15; TEMP 36.6; O2SAT 100
== END 2024-04-17 18:07 | disposition home or self-care (01) ==
PROVIDERS: Emergency Provider Physician Assistant; PCP Nurse Practitioner Family
DX: M54.9 Dorsalgia, unspecified (principal); S09.90XA Unspecified injury of head, initial encounter; W00.0XXA Fall on same level due to ice and snow, initial encounter; G47.33 Obstructive sleep apnea (adult) (pediatric); Z85.46 Personal history of malignant neoplasm of prostate; I25.10 Atherosclerotic heart disease of native coronary artery without angina pectoris; E66.9 Obesity, unspecified; Z68.31 Body mass index [BMI] 31.0-31.9, adult
CPT/HCPCS: 70450; 72125; 72128; 72131; 99284; A9270

== ENCOUNTER 2024-12-04 10:17 | Outpatient (CLI) | payer OTHER, SELFPAY ==
--- OUTSIDE RECORDS SUMMARY | 2024-12-04 10:20 | XMS_ITS | Encounter Summary ---
Author Organization [facility] Address [address] [place] [address] Care Team Providers Care Carbonator Name Role Phone Marquez Torres MD Primary Care Provider [phone]- [phone] Reason for Visit * Reason Comments Question Encounter Details Date Type Department Care Team (Late st Contact Info) Description 10/10/2023 Telephone [facility] [address] [place] [address] [place] [address] [facility] [address] [place] [address] Question Social History Tobacco Use Types Packs/Day Years Used Date Smoking Tobacco: Never Assessed Feeling Safe Answer Date Recorded Are you in a relationship wi th someone who hurts you emotionally and/or physically? 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 * Telephone Encounter - Stacy Lui - 10/10/2023 2:54 PM CDT Copied from [facility] #[id number]. Topic: CPA Information Request - Insurance/Estimate >> Oct 10, 2023 2:46 PM Stacy Escobedo wrote: Caller Name: Mihai Wolff Callback Number: [phone] (home) Call Notes: [employer] said that [...] on filedocumented in this encounter Care Teams Carbonator Relationship Specialty Start Date End Date Marquez Torres MD PCP - General Family Practice 03/28/23 documented as of this encounter
--- OUTSIDE RECORDS SUMMARY | 2024-12-04 10:20 | XMS_ITS | Patient Health Record ---
Author Organization [facility] Address [address] [place], [place] [id number] Care Team Providers Care Software Engineer Advisor Name Role Phone ALETA BECKHAM Unavailable [phone] Marquez Torres Unavailable Unavailable Reason For Referral No Information Plan Of Treatment No Information Insurance Providers Payer Name Payer Address Payer Phone Subscriber Number Group Number Insured Name Patient Relationship to Insured Coverage Start Date Coverage End Date [employer] [address] [place] [id number] EMY MILLS Self - patient is the insured
--- OUTSIDE RECORDS SUMMARY | 2024-12-04 10:20 | XMS_ITS | Clinical Summary ---
Author Organization [facility] Address [address] [place] [address] Phone Care Team Providers Care Sewing Machine Operator Name Role Phone Marquez Torres MD Primary Care Provider +1- [phone] Allergies No known active allergies Encounters Date Type Department Care Team Description 10/13/2024 External Device Data [facility] ABSTRACTION Provider, Abstract 09/23/2024 External Device Data [facility]STRACTION Provider, Abstract 09/22/2024 External Device Data [facility]STRACTION Provider, Abstract 09/08/2024 External Device Data [facility]STRACTION Provider, Abstract from Last 3 Months Social History Tobacco Use Types Packs/Day Years Used Date Smoking Tobacco: Never Assessed Feeling Safe Answer Date Recorded Are you in a relationship wi th someone who hurts you emotionally and/or physically? 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 Gender Identity Not on file Sexual Orientation Not on file Last Filed Vital Signs Vital Sign Reading Time Taken Comments Blood Pressure 134/71 03/28/2023 7:46 PM VENEER LATHE OPERATOR Pulse 92 03/28/2023 7:46 PM VENEER LATHE OPERATOR Temperature 37.3 C (99.1 F) 03/28/2023 5:45 PM VENEER LATHE OPERATOR Respiratory Rate 15 03/28/2023 7:46 PM VENEER LATHE OPERATOR Oxygen Saturation 96% 03/28/2023 7:46 PM VENEER LATHE OPERATOR Inhaled Oxygen Concentration - - Weight 93 kg (205 lb) 03/28/2023 5:45 PM VENEER LATHE OPERATOR Height 172.7 cm (5' 8) 03/28/2023 5:45 PM VENEER LATHE OPERATOR Body Mass Index 31.17 03/28/2023 5:45 PM VENEER LATHE OPERATOR Plan of Treatment Health Maintenance Due Date Last Done Comments DTAP/TDAP/TD VACCINES (1 - Tdap) 1974 COLORECTAL SCREENING 2000 Colorectal Cancer Screening 2000 FIT-DNA Q 3 years 2000 FIT/FOBT Q 1 year 2000 Flex Sig/CT Colonography Q 5 years 2000 PNEUMOCOCCAL VACCINE 50+ YEARS (1 of 1 - PCV) 04/27/19 06 ZOSTER VACCINE (1 of 2) 2005 INFLUENZA VACCINE (#1) 2024 RSV VACCINE (60+ or ) (1 - 1-dose 75+ series) 2030 Insurance Care Teams Sewing Machine Operator Relationship Specialty Start Date End Date Marquez Torres MD PCP - General Family Practice 03/28/23
--- OUTSIDE RECORDS SUMMARY | 2024-12-04 10:20 | XMS_ITS | Encounter Summary ---
Author Organization [facility] Address [address] [place] [address] Care Team Providers Care Channel Machine Operator Name Role Phone Marquez Torres MD Primary Care Provider +1- [phone] Reason for Visit * Reason Comments Lab Results Encounter Details Date Type Department Care Team (Late st Contact Info) Description 10/08/2023 Telephone [facility] [address] [place] [address] [place] [address] [facility] [address] [place] [address] Lab Results Social History Tobacco Use Types Packs/Day Years Used Date Smoking Tobacco: Never Assessed Feeling Safe Answer Date Recorded Are you in a relationship wi th someone who hurts you emotionally and/or physically? 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 Torres * Telephone Encounter - Brenda Cole - 10/08/2023 11:12 AM CDT Copied from [facility] #[id number]. Topic: Patient or Caregiver Communication Request >> Oct 08, 2023 11:09 AM Brenda Corral wrote: Patient or Caregiver insisting that a message be sent to Care Team Caller: Mihai Wolff Patient/Caregiver Callback Number: [phone] Call Notes: Pt is calling in regards of being scheduled with . Pt states he had an appointment with yesterday on 10/06, yet he moved locations. Requesting call back with further information. documented in this encounter Plan of Treatment Not on file documented as of this encounter Visit Diagnoses Not on filedocumented in this encounter Care Teams Channel Machine Operator Relationship Specialty Start Date End Date Marquez Torres MD PCP - General Family Practice 03/28/23 documented as of this encounter
[2024-12-04 10:46] LABS: Hematocrit 41.7 % (42.0-52.0); Hemoglobin 14.3 g/dL (14.0-18.0); Immature Granulocyte Percent A 0.4 % (0-0.5); Lymphocytes Absolute Auto 1.21 K/mm3 (0.9-3.2); Mean Corpuscular HGB Conc 34.3 g/dl (32-36); Mean Corpuscular Hemoglobin 33.8 pg (26-34); Mean Corpuscular Volume 98.6 fl (80-100); Nucleated Red Blood Cells Absolute Auto 0.000 K/mm3 (0.0-0.012); Nucleated Red Blood Cells Perc 0.0 % (0.0-0.2); Platelet Count Result 191 k/mm3 (150-375); Red Blood Count 4.23 M/mm3 (4.6-6.20); White Blood Count 5.5 K/mm3 (4.5-10.0)
[2024-12-04 11:02] LABS: Alanine Aminotransferase 48 U/L (6-50); Albumin Level 4.1 g/dL (3.5-5.1); Alkaline Phosphatase 76 U/L (38-126); Anion Gap 3 mmol/L (4-12); Aspartate Amino Transferase 44 U/L (17-59); Bilirubin,Total 0.5 mg/dL (0.2-1.3); Blood Urea Nitrogen 12 mg/dL (9-20); Calcium 9.1 mg/dL (8.4-10.2); Carbon Dioxide 29 mmol/L (22-30); Chloride 104 mmol/L (98-107); Cholesterol 100 mg/dL (0-200); Estimated Glomerular Filt Rate 47; Glucose 84 mg/dL (65-110); HDL Direct 38 mg/dL; Iron 74 ug/dL (49-181); Magnesium 2.0 mg/dL (1.6-2.3); Potassium 4.7 mmol/L (3.4-5.0); Sodium 136 mmol/L (137-145); Total Protein 7.0 g/dL (6.3-8.2); Triglycerides 118 mg/dL (<150)
[2024-12-04 11:12] LABS: Percent Iron Saturation 21 % (20-50)
[2024-12-04 11:39] LABS: Thyroid Stimulating Hormone Reflex 0.308 uIU/mL (0.465-4.68)
[2024-12-04 11:43] LABS: Ferritin 52.60 ng/mL (11.1-264)
[2024-12-04 12:13] LABS: Vitamin B12 839.0 pg/mL (239-931)
[2024-12-04 13:51] LABS: Free T4 Free Thyroxine Reflex 1.46 ng/dL (0.78-2.19)
[2024-12-04 15:29] LABS: Total Triiodothyronine (T3) 0.84 NG/ML (0.82-1.58)
== END 2024-12-04 10:18 | disposition home or self-care (01) ==
PROVIDERS: PCP Nurse Practitioner Family; Visit Provider Nurse Practitioner Family
DX: F33.1 Major depressive disorder, recurrent, moderate (principal); I25.10 Atherosclerotic heart disease of native coronary artery without angina pectoris; F11.21 Opioid dependence, in remission; E03.9 Hypothyroidism, unspecified; E66.811 Obesity, class 1; R22.0 Localized swelling, mass and lump, head; K21.9 Gastro-esophageal reflux disease without esophagitis; N40.1 Benign prostatic hyperplasia with lower urinary tract symptoms; R35.1 Nocturia; D64.9 Anemia, unspecified; M15.3 Secondary multiple arthritis; L40.50 Arthropathic psoriasis, unspecified; M65.319 Trigger thumb, unspecified thumb; M54.10 Radiculopathy, site unspecified; L40.9 Psoriasis, unspecified; L98.9 Disorder of the skin and subcutaneous tissue, unspecified; Z95.5 Presence of coronary angioplasty implant and graft; Z79.899 Other long term (current) drug therapy
CPT/HCPCS: 36415; 80053; 80061; 82607; 82728; 82746; 83540; 83550; 83735; 84439; 84443; 84480; 85025